=== PATIENT | female | born 1940 | race Hispanic/Latino ===

== ENCOUNTER 2017-03-10 06:13 | Emergency (ER) | payer MEDICARE, OTHER ==
[2017-03-10 06:21] VITALS: BP 167/81; PULSE 105; RESP 21; TEMP 98.5; O2SAT 96
[2017-03-10] MEDS ORDERED: Sodium Chloride 0.9% 1,000 ML IV STA (06:29)
--- NOTE | 2017-03-10 06:48 | ED PDOC ---
HPI: Female Pain Time Seen by Provider: 03/10/17 06:28 Chief Complaint (Nursing): Female Genitourinary Chief Complaint (Provider): Female Genitourinary History Per: Patient History/Exam Limitations: no limitations Onset/Duration Of Symptoms: Days (x5 days) Current Symptoms Are (Timing): Still Present Additional Complaint(s): 77 y/o female with a past medical history of kidney stones, asthma, bronchitis, hypertension and anxiety presents to the emergency department with a complaint of right flank pain, dysuria, sweats, chills, and abdominal pain (suprapubic region) x5 days. Describes pain is an 8/10 which worsens with urination. Reports she is currently on Zithromax for bronchitis. Denies fever, nausea, vomiting, and diarrhea. Past Medical History Reviewed: Historical Data, Nursing Documentation, Vital Signs Vital Signs: Last Vital Signs Temp 98.5 F 03/10/17 06:16 Pulse 105 H 03/10/17 06:16 Resp 21 03/10/17 06:16 BP 167/81 H 03/10/17 06:16 Pulse Ox 96 03/10/17 06:16 - Medical History PMH: Bronchitis, HTN, Kidney Stones, Chronic Kidney Disease - Surgical History Surgical History: No Surg Hx - Family History Family History: States: Unknown Family Hx - Social History Current smoker - smoking cessation education provided: No Alcohol: None Drugs: Denies - Home Medications Home Medications: Ambulatory Orders Medication Instructions Recorded Olmesartan Medoxomil [Benicar] 5 mg PO DAILY 08/05/15 Albuterol HFA [Ventolin HFA 90 1 puff IH Q4 PRN #1 puff 08/06/15 mcg/actuation (8 g)] Benzonatate [Tessalon Perles] 100 mg PO TID PRN #0 sgl 08/06/15 Losartan [Cozaar] 25 mg PO DAILY #0 tab 08/06/15 Azithromycin [Zithromax] 250 mg PO DAILY 03/10/17 Fluticasone/Vilanterol [Breo 1 puff PO DAILY 03/10/17 Ellipta 100-25 Mcg INH] Nitrofurantoin Macrocrystals 100 mg PO BID #14 cap 03/10/17 [Macrobid] Phenazopyridine [Pyridium] 200 mg PO TID PRN #6 tab 03/10/17 - Allergies Allergies/Adverse Reactions: Allergies Allergy/AdvReac Type Severity Reaction Status Date / Time codeine Allergy NAUSEA Verified 03/10/17 06:23 naproxen [From Naprosyn] Allergy RASH Verified 03/10/17 06:23 Review of Systems ROS Statement: Except As Marked, All Systems Reviewed And Found Negative Constitutional: Positive for: Chills, Sweats. Negative for: Fever Gastrointestinal: Positive for: Abdominal Pain. Negative for: Nausea, Vomiting , Diarrhea Genitourinary Female: Positive for: Dysuria Musculoskeletal: Positive for: Other (Flank pain) Physical Exam - Reviewed Nursing Documentation Reviewed: Yes Vital Signs Reviewed: Yes - Physical Exam Appears: Positive for: Non-toxic, No Acute Distress Head Exam: Positive for: ATRAUMATIC, NORMOCEPHALIC Skin: Positive for: Normal Color, Warm, Dry Neck: Positive for: Normal, Supple Cardiovascular/Chest: Positive for: Regular Rate, Rhythm. Negative for: Murmur Respiratory: Positive for: Normal Breath Sounds. Negative for: Accessory Muscle Use, Respiratory Distress Gastrointestinal/Abdominal: Positive for: Soft, Tenderness (Suprapubic tenderness) Back: Positive for: R CVA Tenderness. Negative for: Normal Inspection - Laboratory Results Result Diagrams: 03/10/17 07:10 03/10/17 07:10 - ECG O2 Sat by Pulse Oximetry: 96 (RA) Pulse Ox Interpretation: Normal Medical Decision Making Medical Decision Making: Time: 06:28 Initial impression: 77 y/o female with flank pain and urinary symptoms in setting of previous kidney stones Initial plan: --COMP Metabolic Panel --Lact Acid, Plasma Stat --ED Urine Dipstick (POC) --CBC w/ differential --Toradol 10 mg IV Stat --Sodium Chloride 1,000 ml IV 1,000 mls/hr --Rocephin 1gm --Blood Culture Stat --Culture Urine --IV Insertion --Revaluation Time: 07:00 --Transfer of care to Dr. Vanessa Padilla Attestation: Documented by Jo Ann Granados, acting as a scribe for Sami Jackman MD. Provider Scribe Attestation: All medical record entries made by the Scribe were at my direction and personally dictated by me. I have reviewed the chart and agree that the record accurately reflects my personal performance of the history, physical exam, medical decision making, and the department course for this patient. I have also personally directed, reviewed, and agree with the discharge instructions and disposition. Disposition - Clinical Impression Clinical Impression: UTI (urinary tract infection) - Disposition Referrals: Lyndon Porter MD [Family Provider] - Disposition: Transfer of Care (to Dr. Mendez) Disposition Time: 07:00 Condition: STABLE Prescriptions: Nitrofurantoin Macrocrystals [Macrobid] 100 mg PO BID #14 cap Phenazopyridine [Pyridium] 200 mg PO TID PRN #6 tab PRN Reason: Bladder Spasm Instructions: Urinary Tract Infection in Women (ED) Print Language: ITALIAN Patient Signed Over To: Miesha Mendez
[2017-03-10 07:13] LABS: BASO # 0.1 K/uL (0.0-0.2); BASO % 0.5 % (0.0-2.0); EOS # 0.1 K/uL (0.0-0.7); EOS % 1.1 % (0.0-4.0); HEMATOCRIT 38.1 % (34.0-47.0); LYMPH # 1.9 K/uL (1.0-4.3); LYMPH % 16.4 % (20.0-40.0); MEAN CELL VOLUME 89.8 fl (81.0-99.0); MEAN CORPUSCULAR HEMOGLOBIN 29.5 pg (27.0-31.0); MEAN CORPUSCULAR HGB CONC 32.8 g/dL (33.0-37.0); MEAN PLATELET VOLUME 8.3 fl (7.2-11.7); MONO # 0.8 K/uL (0.0-0.8); MONO % 6.9 % (0.0-10.0); NEUT # 8.8 K/uL (1.8-7.0); NEUT % 75.1 % (50.0-75.0); NRBC % 0.1 % (0.0-0.0); RED CELL DISTRIBUTION WIDTH 14.2 % (11.5-14.5); WHITE BLOOD COUNT 11.7 K/uL (4.8-10.8)
[2017-03-10 07:25] LABS: ALB/GLOB RATIO 1.4 (1.0-2.1); ALKALINE PHOSPHATASE 81 U/L (38-126); ALT/SGPT 31 U/L (9-52); AST/SGOT 19 U/L (14-36); BILIRUBIN,TOTAL 0.5 mg/dl (0.2-1.3); BLOOD UREA NITROGEN 21 mg/dl (7-17); CALCIUM 9.4 mg/dL (8.4-10.2); CARBON DIOXIDE 23 mmol/L (22-30); CHLORIDE 106 mmol/L (98-107); GFR AFRICAN-AMERICAN > 60; GLUCOSE,RANDOM 112 mg/dL (65-105); POTASSIUM 4.3 MMOL/L (3.6-5.0); SODIUM 139 mmol/l (132-148); TOTAL PROTEIN 7.2 G/DL (6.3-8.2)
[2017-03-10] MEDS ORDERED: cefTRIAXone (Rocephin) 1 gm Inj ONE ×2 (07:25→20:02)
[2017-03-10 08:48] LABS: RBC URINE 2 /hpf (0-3); URINE BACTERIA MOD (<OCC); URINE BILIRUBIN NEGATIVE (NEGATIVE); URINE BLOOD NEGATIVE (NEGATIVE); URINE COLOR AMBER (YELLOW); URINE GLUCOSE (UA) NEG (Normal); URINE KETONE NEGATIVE (NEGATIVE); URINE LEUKOCYTE ESTERASE MOD Leu/uL (Negative); URINE PROTEIN NEGATIVE (NEGATIVE); WBC CLUMPS MOD /hpf; WBC URINE 38 /hpf (0-5)
--- NOTE | 2017-03-10 09:50 | CT ---
PROCEDURE: CT abdomen pelvis the 03/10/2017. HISTORY: L flank pain COMPARISON: Comparison made prior CT scan abdomen pelvis 11/25/2014. TECHNIQUE: Contiguous axial images of the abdomen and pelvis without oral or intravenous contrast material the [place]. Coronal and Sagittal reformats generated. Radiation dose: Total exam DLP = 1037.72 mGy-cm. This CT exam was performed using one or more of the following dose reduction techniques: Automated exposure control, adjustment of the mA and/or kV according to patient size, and/or use of iterative reconstruction technique. FINDINGS: LOWER THORAX: No acute infiltrates or effusions. Semi lunar shaped nodular density left posterolateral lung base measuring approximately 10 mm. This could represent some post inflammatory sequela. Followup nonemergent CT scan of the chest without the further evaluation. There is also small calcified granuloma the immediately to the aforementioned semi lunar shaped nodule (see axial image number 3 and 7 respectively) mild curvilinear subsegmental atelectasis/ scarring also present within the medial posterior sulcus. . Heart size is mildly enlarged. . LIVER: Liver exhibits relatively normal size measuring 17 cm in CC dimension. No hepatic mass or collection. . GALLBLADDER AND BILE DUCTS: Gallbladder is physiologically distended. No evidence of intraluminal gallbladder calculi. . PANCREAS: Visualized portions of the pancreas are unremarkable. SPLEEN: Spleen exhibits normal size and attenuation pattern without mass collection or calcification. ADRENALS: No adrenal lesions. . KIDNEYS AND URETERS: Kidneys exhibit relatively symmetric size. No evidence of nephrolithiasis or hydronephrosis. Small approximately 16 mm cyst posterior aspect mid to upper pole right kidney. Note that the left kidney is incompletely rotated BLADDER: Urinary bladder is incompletely distended which may account for slight thick-walled appearance. The possibility of a cystitis less likely though not completely excluded. Clinical correlation recommended. No evidence of intraluminal urinary bladder calculi. REPRODUCTIVE: Uterus and adnexal structures grossly unremarkable. . APPENDIX: The appendix is not seen with certainty however no obvious inflammatory changes right lower quadrant of the abdomen. BOWEL: Evaluation of the bowel is limited due to the lack of oral contrast material. Stomach is incompletely distended which presumably accounts slight thick-walled appearance. Gastritis not excluded. Visualized loops of small bowel exhibit normal contour and caliber. No evidence acute mechanical small bowel obstruction. Stool and air seen throughout the colon. There does appear to be a few scattered colonic diverticula along the distal descending and sigmoid: . No radiographic evidence of acute diverticulitis PERITONEUM: Unremarkable. No fluid collection. No free air. Small fat containing umbilical hernia. LYMPH NODES: Unremarkable. No enlarged lymph nodes. VASCULATURE: Unremarkable. No aortic aneurysm. BONES: Multilevel degenerative spondylosis of the lower thoracic and lumbar spine. OTHER FINDINGS: None. IMPRESSION: No evidence of nephrolithiasis or hydronephrosis. Small cyst upper pole right kidney. There appears to be a few scattered colonic diverticula along the descending and sigmoid colon however no radiographic evidence diverticulitis. Small hiatal hernia. Scarring/chronic atelectasis left the small approximately 10 mm semi lunar shaped nodular density left lung base. Findings are felt to represent post inflammatory sequela. There is also small calcified calcified granuloma left lung base consistent with prior exposure to granulomatous disease process.
== END 2017-03-10 10:58 | disposition home or self-care (01) ==
LOC: H.ER 06:13
DX: N39.0 Urinary tract infection, site not specified (principal); Z87.442 Personal history of urinary calculi; N18.9 Chronic kidney disease, unspecified; I12.9 Hypertensive chronic kidney disease with stage 1 through stage 4 chronic kidney disease, or unspecified chronic kidney disease

== ENCOUNTER 2017-03-10 19:04 | Inpatient (IN) | payer MEDICARE, OTHER ==
[2017-03-10] MEDS ORDERED: Sodium Chloride 0.9% 1,000 ML IV STA (19:29)
--- NOTE | 2017-03-10 19:57 | ED PDOC ---
HPI:Nausea, Vomiting, Diarrhea Time Seen by Provider: 03/10/17 19:21 Chief Complaint (Nursing): GI Problem Chief Complaint (Provider): Nausea/Vomiting History Per: Patient History/Exam Limitations: no limitations Onset/Duration Of Symptoms: Days (2 days) Current Symptoms Are (Timing): Still Present Have you had recent travel within the past 21 days to any of the following countries: [place], [place], [place] or [place]?: No Severity: Moderate Associated Symptoms: Fever, Chills, Nausea, Vomiting (bilious), Other (mild, right-sided flank pain and a non-productive cough) Additional Complaint(s): Nona Irwin is a 77 year old [place] female, with no pertinent past medical history, who presents to the emergency department for the evaluation of bilious vomiting, that the patient has been experiencing for the past 2 days. Patient was seen in the emergency room this morning by Sami Jackman MD and signed out to the incoming shift, in which she had a full work up that was consistent with a urinary tract infection, and was diagnosed home on antibiotics. Patient reports that after being discharged from the emergency room , she began to feel increasingly worse, inclusive of nausea and multiple episodes of vomiting; however, her right-sided flank pain has somewhat improved. Associated fever, chills, and a dry cough are currently present. PMD: Lyndon Porter Past Medical History Reviewed: Historical Data, Nursing Documentation, Vital Signs Vital Signs: Last Vital Signs Temp 99.4 F 03/10/17 19:07 Pulse 130 H 03/10/17 19:07 Resp 16 03/10/17 19:07 BP 157/65 H 03/10/17 19:07 Pulse Ox 100 03/10/17 19:07 - Medical History PMH: Anxiety, Bronchitis, HTN, Kidney Stones, Chronic Kidney Disease Other PMH: Hemorrhoids, Urinary Tract Infection - Surgical History Surgical History: No Surg Hx - Family History Family History: States: No Known Family Hx - Social History Current smoker - smoking cessation education provided: No Ex-Smoker (has not smoked in the last 12 months): No Alcohol: None Drugs: Denies - Home Medications Home Medications: Ambulatory Orders Medication Instructions Recorded Olmesartan Medoxomil [Benicar] 5 mg PO DAILY 08/05/15 Albuterol HFA [Ventolin HFA 90 1 puff IH Q4 PRN #1 puff 08/06/15 mcg/actuation (8 g)] Benzonatate [Tessalon Perles] 100 mg PO TID PRN #0 sgl 08/06/15 Losartan [Cozaar] 25 mg PO DAILY #0 tab 08/06/15 Azithromycin [Zithromax] 250 mg PO DAILY 03/10/17 Fluticasone/Vilanterol [Breo 1 puff PO DAILY 03/10/17 Ellipta 100-25 Mcg INH] Nitrofurantoin Macrocrystals 100 mg PO BID #14 cap 03/10/17 [Macrobid] Phenazopyridine [Pyridium] 200 mg PO TID PRN #6 tab 03/10/17 - Allergies Allergies/Adverse Reactions: Allergies Allergy/AdvReac Type Severity Reaction Status Date / Time codeine Allergy NAUSEA Verified 03/10/17 06:23 naproxen [From Naprosyn] Allergy RASH Verified 03/10/17 06:23 Review of Systems ROS Statement: Except As Marked, All Systems Reviewed And Found Negative Constitutional: Positive for: Fever, Chills Respiratory: Positive for: Cough Gastrointestinal: Positive for: Nausea, Vomiting (bilious), Abdominal Pain ( right flank) Physical Exam - Reviewed Nursing Documentation Reviewed: Yes Vital Signs Reviewed: Yes - Physical Exam Appears: Positive for: Non-toxic, Uncomfortable Head Exam: Positive for: ATRAUMATIC, NORMOCEPHALIC Skin: Positive for: Normal Color, Warm, Dry Cardiovascular/Chest: Positive for: Tachycardia. Negative for: Regular Rate, Rhythm (regular rhythm), Murmur Respiratory: Positive for: Normal Breath Sounds. Negative for: Respiratory Distress Gastrointestinal/Abdominal: Positive for: Normal Exam, Soft. Negative for: Tenderness, Guarding, Rebound Back: Positive for: Normal Inspection, R CVA Tenderness (mild). Negative for: L CVA Tenderness Neurologic/Psych: Positive for: Alert, Oriented - Laboratory Results Result Diagrams: 03/11/17 06:30 03/11/17 06:30 - ECG O2 Sat by Pulse Oximetry: 100 (RA) Pulse Ox Interpretation: Normal - Radiology X-Ray: Interpreted by Me, Viewed By Me, Read By Radiologist X-Ray Interpretation: No Acute Disease Medical Decision Making Medical Decision Makin:21 Initial Impression: 77 year old [place] female presents to the emergency department with nausea, vomiting, PO intolerance, and a setting of a diagnosed urinary tract infection. Initial Plan: * Chest X-Ray * Electrocardiogram * Complete Blood Count * Comprehensive Metabolic Panel * Lactic Acid, Plasma * Urine Dip * Urinalysis * Sodium Chloride 0.9% 1,000 ml IV at 100 mls/hr * Pepcid 20 mg IV * Rocephin 1 gm IV * Toradol 10 mg IV * Zofran 8 mg IV * Blood Culture * Urine Culture * Reevaluation 19:37 Patient admit to the emergency room, case referred to Javed Baig MD, covering for Lyndon Porter MD. 21:50 Labs reviewed, significant for elevated white blood cell count, which is increased from white blood cell count this morning. Urinalysis is indicative of a urinary tract infection. Lactic acid is normal. Chest x-ray shows no acute disease. Scribe Attestation: Documented by Ria Ellison, acting as a scribe for Sami Jackman MD. Provider Scribe Attestation: All medical record entries made by the Scribe were at my direction and personally dictated by me. I have reviewed the chart and agree that the record accurately reflects my personal performance of the history, physical exam, medical decision making, and the department course for this patient. I have also personally directed, reviewed, and agree with the discharge instructions and disposition. Disposition - Clinical Impression Clinical Impression: Pyelonephritis - Patient ED Disposition Is Patient to be Admitted: Yes Discussed With DrCarmencita: Javed Baig ( for Dr Porter) - Disposition Disposition Time: 19:37 Condition: FAIR
[2017-03-10] MEDS ORDERED: Albuterol-Ipratrop 3 mg / 0.5 (3 ml) UD INH STA (20:21)
[2017-03-10] MEDS ORDERED: Albuterol-Ipratrop 3 mg / 0.5 (3 ml) UD ONE (20:34)
[2017-03-10 20:36] LABS: BASO # 0.1 K/uL (0.0-0.2); BASO % 0.5 % (0.0-2.0); EOS # 0.1 K/uL (0.0-0.7); EOS % 0.3 % (0.0-4.0); HEMATOCRIT 36.7 % (34.0-47.0); LYMPH # 0.6 K/uL (1.0-4.3); LYMPH % 3.6 % (20.0-40.0); MEAN CELL VOLUME 89.1 fl (81.0-99.0); MEAN CORPUSCULAR HEMOGLOBIN 30.1 pg (27.0-31.0); MEAN CORPUSCULAR HGB CONC 33.8 g/dL (33.0-37.0); MEAN PLATELET VOLUME 8.8 fl (7.2-11.7); MONO # 0.5 K/uL (0.0-0.8); MONO % 2.8 % (0.0-10.0); NEUT # 15.2 K/uL (1.8-7.0); NEUT % 92.8 % (50.0-75.0); NRBC % 0.1 % (0.0-0.0); PLATELET COUNT 222 K/uL (130-400); WHITE BLOOD COUNT 16.3 K/uL (4.8-10.8)
[2017-03-10] MEDS ORDERED: Ciprofloxacin 400mg/200ml D5W 400 MG/200 ML BAG IV STA (20:39)
[2017-03-10 20:43] LABS: ALB/GLOB RATIO 1.4 (1.0-2.1); ALKALINE PHOSPHATASE 77 U/L (38-126); ALT/SGPT 28 U/L (9-52); AST/SGOT 25 U/L (14-36); BLOOD UREA NITROGEN 18 mg/dl (7-17); CALCIUM 9.2 mg/dL (8.4-10.2); CARBON DIOXIDE 23 mmol/L (22-30); CHLORIDE 103 mmol/L (98-107); GFR AFRICAN-AMERICAN > 60; GLUCOSE,RANDOM 113 mg/dL (65-105); POTASSIUM 4.3 MMOL/L (3.6-5.0); SODIUM 137 mmol/l (132-148); TOTAL PROTEIN 7.1 G/DL (6.3-8.2)
[2017-03-10 21:23] LABS: NEUTROPHIL 90 % (42-75); REACTIVE LYMPHOCYTES 1 % (0-0); TOTAL CELLS COUNTED 100
[2017-03-10 21:34] LABS: RBC URINE 1 /hpf (0-3); URINE BILIRUBIN NEGATIVE (NEGATIVE); URINE BLOOD NEGATIVE (NEGATIVE); URINE COLOR AMBER (YELLOW); URINE GLUCOSE (UA) NEG (Normal); URINE KETONE NEGATIVE (NEGATIVE); URINE LEUKOCYTE ESTERASE TRACE Leu/uL (Negative); URINE PROTEIN NEGATIVE (NEGATIVE); WBC URINE 13 /hpf (0-5)
[2017-03-10] MEDS ORDERED: Albuterol-Ipratrop 3 mg / 0.5 (3 ml) UD INH PRN (21:34)
--- NOTE | 2017-03-10 21:40 | CP.PCM.HP ---
History of Present Illness - History of Present Illness History of Present Illness: 77 y/o F with PMH including HTN, Hyperlipidemia, Obesity, Anxiety, Kidney stones and recently diagnosed acute bronchitis presented to ED earlier today with 3-4 day history of increasing dysuria, suprapubic pain, right sided flank pain, subjective fever and chills. She was evaluated and discharged home with diagnosis of acute cystitis and course of macrobid. Patient reports that after being discharged from ED she began experiencing increasing nausea and vomiting and has been unable to tolerate her antibiotics. She had 6 episodes of non- bloody emesis today, with the last episode occurring 1 hour prior to assessment. Patient is also currently being treated for acute bronchitis. She had been experiencing a non-bloody cough productive of whitish yellow mucus. She is currently on day 01/16 of a zpack which was prescribed by her PCP. She denies chest pain, SOB or exertional dyspnea. PCP: Dr Shankar Present on Admission - Present on Admission Any Indicators Present on Admission: No History of DVT/PE: No History of Uncontrolled Diabetes: No Urinary Catheter: No Review of Systems - Constitutional Constitutional: Chills, Fever. absent: Headache - EENT Nose/Mouth/Throat: Dry Mouth - Cardiovascular Cardiovascular: absent: Chest Pain, Diaphoresis, Dyspnea, Palpitations - Respiratory Respiratory: Cough. absent: Hemoptysis - Gastrointestinal Gastrointestinal: Abdominal Pain (suprapubic pain), Nausea, Vomiting. absent: Diarrhea - Genitourinary Genitourinary: Dysuria, Flank Pain, Urinary Frequency, Urinary Urgency. absent : Hematuria - Psychiatric Psychiatric: Anxiety Past Patient History - Past Medical History & Family History Past Medical History?: Yes - Past Social History Smoking Status: Never Smoked Alcohol: None Drugs: Denies Home Situation {Lives}: Alone - CARDIAC Hx Hypertension: Yes - PULMONARY Hx Bronchitis: Yes - NEUROLOGICAL Hx Neurological Disorder: No - HEENT Hx HEENT Problems: No - RENAL Hx Chronic Kidney Disease: Yes Hx Kidney Stones: Yes - ENDOCRINE/METABOLIC Hx Endocrine Disorders: No - HEMATOLOGICAL/ONCOLOGICAL Hx Blood Disorders: No - INTEGUMENTARY Hx Dermatological Problems: No - MUSCULOSKELETAL/RHEUMATOLOGICAL Hx Musculoskeletal Disorders: No - GASTROINTESTINAL Hx Gastrointestinal Disorders: Yes Hx Hemorrhoids: Yes Other/Comment: Hemorrhoids - GENITOURINARY/GYNECOLOGICAL Hx Genitourinary Disorders: Yes (Kidney stones 2014) - PSYCHIATRIC Hx Anxiety: Yes - SURGICAL HISTORY Hx Surgeries: No - ANESTHESIA Hx Anesthesia: No Meds Allergies/Adverse Reactions: Allergies Allergy/AdvReac Type Severity Reaction Status Date / Time codeine Allergy NAUSEA Verified 03/10/17 06:23 naproxen [From Naprosyn] Allergy RASH Verified 03/10/17 06:23 Physical Exam - Constitutional Appears: Non-toxic, No Acute Distress - Head Exam Head Exam: ATRAUMATIC, NORMAL INSPECTION, NORMOCEPHALIC - Eye Exam Eye Exam: EOMI, Normal appearance, PERRL. absent: Scleral icterus - Neck Exam Neck exam: Positive for: Full Rom. Negative for: Lymphadenopathy - Respiratory Exam Additional comments: B/L air entry present. No wheezing, rales or rhonchii appreciated. No retractions or signs of respiratory distress. - Cardiovascular Exam Cardiovascular Exam: Tachycardia, REGULAR RHYTHM, +S1, +S2, Systolic Murmur ( Grade II) - GI/Abdominal Exam GI & Abdominal Exam: Normal Bowel Sounds, Soft. absent: Distended, Rebound, Tenderness (No suprapubic tenderness) Additional comments: Negative Blackwell sign. - Extremities Exam Extremities exam: Positive for: pedal edema (trace b/l). Negative for: calf tenderness Additional comments: Cap refill <3s - Back Exam Back exam: CVA tenderness (R) - Neurological Exam Neurological exam: Alert, CN II-XII Intact, Oriented x3 - Psychiatric Exam Psychiatric exam: Anxious - Skin Skin Exam: Dry, Normal Color, Warm Results - Vital Signs Recent Vital Signs: Last Vital Signs Temp 99.4 F 03/10/17 19:07 Pulse 130 H 03/10/17 19:07 Resp 16 03/10/17 19:07 BP 157/65 H 03/10/17 19:07 Pulse Ox 100 03/10/17 20:08 - Labs Result Diagrams: 03/10/17 20:26 03/10/17 20:26 Labs: Laboratory Results - last 24 hr 03/10/17 03/10/17 03/10/17 20:25 20:26 20:26 WBC 16.3 H RBC 4.12 Hgb 12.4 Hct 36.7 MCV 89.1 MCH 30.1 MCHC 33.8 RDW 14.0 Plt Count 222 MPV 8.8 Neut % (Auto) 92.8 H Lymph % (Auto) 3.6 L [place] % (Auto) 2.8 Eos % (Auto) 0.3 Baso % (Auto) 0.5 Neut # 15.2 H Lymph # 0.6 L [place] # 0.5 Eos # 0.1 Baso # 0.1 Neutrophils % (Manual) 90 H Band Neutrophils % 4 H Lymphocytes % (Manual) 2 L Reactive Lymphs % 1 H Monocytes % (Manual) 3 Platelet Estimate Normal Anisocytosis (manual) Slight Sodium 137 Potassium 4.3 Chloride 103 Carbon Dioxide 23 Anion Gap 15 BUN 18 H Creatinine 0.8 Est GFR ( Amer) > 60 Est GFR (Non-Af Amer) > 60 Random Glucose 113 H Lactic Acid 1.6 Calcium 9.2 Total Bilirubin 1.0 AST 25 ALT 28 Alkaline Phosphatase 77 Total Protein 7.1 Albumin 4.1 Globulin 3.0 Albumin/Globulin Ratio 1.4 Assessment & Plan - Assessment and Plan (Free Text) Assessment: 77 y/o F with PMH including HTN, Hyperlipidemia, Obesity, Anxiety, Kidney stones and recently diagnosed acute bronchitis presented to ED with 3-4 day history of increasing dysuria, suprapubic pain, right sided flank pain, subjective fever and chills. She was unable to tolerate antibiotics due to increasing nausea and vomiting and was admitted with acute pyelonephritis based on UA and clinical examination. Plan: Flank pain, right sided -Likely secondary to acute pyelonephritis -UA reveals positive Nitrates, Moderate/Trace Leukocyte esterace and bacteria -Urine culture obtained and pending -Patient has history of kidney stones, however abdominal CT did not detect any evidence of nephrolithiasis or hydronephrosis -Urinary bladder wall appears slightly thickened on CT, which may be consistent with cystitis -No evidence of cholelithiasis. LFTs and total bili are within normal limits -EKG sinus tachycardia with no ischemic changes -WBC: 16.3. Patient currently afebrile -Received Ceftriaxone 1gm IV x2 doses from ED -Will continue Ceftriaxone 1gm IV daily -IV fluids for dehydration -Toradol prn for pain Acute bronchitis -Patient is currently being treated for acute bronchitis by PCP -On day 4/5 of Zpack -CXR does not reveal any clear effusions or infiltrates. Pending official read -Currently denies SOB but has been using duoneb treatments at home PRN Hypertension -Poorly controlled. -BP possibly acutely increased secondary to pain. -Will follow BP and consider dose adjustments as necessary Hyperlipidemia -Patient reports prior history of hyperlipidemia which is not currently medically managed -Will obtain lipid panel DVT Prophylaxis -Lovenox 40mg SC daily -SCDs
[2017-03-10] MEDS: Sodium Chloride 0.9% 1,000 ML IV SCH (22:57)
[2017-03-11] MEDS: Sodium Chloride 0.9% 1,000 ML IV SCH ×2 (00:49→04:39)
[2017-03-11 07:24] LABS: BASO % 0.2 % (0.0-2.0); EOS # 0.1 K/uL (0.0-0.7); EOS % 0.2 % (0.0-4.0); HEMATOCRIT 31.6 % (34.0-47.0); LYMPH # 0.9 K/uL (1.0-4.3); MEAN CELL VOLUME 89.4 fl (81.0-99.0); MEAN CORPUSCULAR HEMOGLOBIN 29.5 pg (27.0-31.0); MEAN CORPUSCULAR HGB CONC 33.1 g/dL (33.0-37.0); MEAN PLATELET VOLUME 8.3 fl (7.2-11.7); MONO % 4.2 % (0.0-10.0); NEUT # 20.6 K/uL (1.8-7.0); NEUT % 91.4 % (50.0-75.0); NRBC % 0.1 % (0.0-0.0); RED CELL DISTRIBUTION WIDTH 14.2 % (11.5-14.5); WHITE BLOOD COUNT 22.6 K/uL (4.8-10.8)
[2017-03-11 07:30] LABS: BLOOD UREA NITROGEN 17 mg/dl (7-17); CALCIUM 8.4 mg/dL (8.4-10.2); CARBON DIOXIDE 25 mmol/L (22-30); CHLORIDE 106 mmol/L (98-107); GFR AFRICAN-AMERICAN > 60; GLUCOSE,RANDOM 116 mg/dL (65-105); POTASSIUM 4.2 MMOL/L (3.6-5.0); SODIUM 138 mmol/l (132-148)
[2017-03-11] MEDS: Enoxaparin 40 mg Syringe SC SCH (08:54)
[2017-03-11] MEDS ORDERED: Sodium Chloride 0.9% 1,000 ML IV SCH (10:05)
--- NOTE | 2017-03-11 10:58 | CARD ---
APPROVED REPORT EKG Measurement Heart [id number] <Conclusion> Sinus tachycardia Left axis deviation Abnormal ECG
--- NOTE | 2017-03-11 10:59 | RAD ---
HISTORY: cough COMPARISON: 07/24/2016 FINDINGS: LUNGS: Increased pulmonary vascular congestion. Hazy opacity in the lung bases. PLEURA: No significant pleural effusion identified, no pneumothorax apparent. CARDIOVASCULAR: Enlarged cardiomediastinal silhouette, essentially unchanged. OSSEOUS STRUCTURES: The osseous structures demonstrate degenerative changes. VISUALIZED UPPER ABDOMEN: Upper abdomen is suboptimally evaluated. OTHER FINDINGS: None. IMPRESSION: Increased pulmonary vascular congestion and hazy opacity in the lung bases.
--- NOTE | 2017-03-11 11:04 | CP.PCM.PN ---
Subjective - Date & Time of Evaluation Date of Evaluation: 03/11/17 Time of Evaluation: 08:00 - Subjective Subjective: 77 y/o F admitted with Right flank pain, associated with dysuria, nausea, vomiting, fevers being f/u for fever and clinical condition. Patient was seen and examined at bedside this morning. Patient is still complaining of right flank pain, intermittent, sharp quality, reproduced by changes in position. Patient is complaining of wet cough associated with green non bloody sputum production. Denies chills, nausea, vomiting, chest pain, SOB, abdominal pain. Objective - Vital Signs/Intake and Output Vital Signs (last 24 hours): Temp Pulse Resp BP Pulse Ox 98.6 F 67 20 124/71 97 03/11/17 08:12 03/11/17 08:53 03/11/17 08:12 03/11/17 08:53 03/11/17 08:12 - Medications Medications: Current Medications Acetaminophen (Tylenol 325mg Tab) 650 mg PO Q6 PRN PRN Reason: Fever >100.4 F Last Admin: 03/11/17 07:44 Dose: 650 mg Albuterol/Ipratropium (Duoneb 3 Mg/0.5 Mg (3 Ml) Ud) 3 ml INH Q8 [facility] TO [facility] Benzonatate (Tessalon Perles) 100 mg PO TID PRN PRN Reason: Cough Enoxaparin Sodium (Lovenox) 40 mg SC DAILY [facility]U PRN Reason: Protocol Last Admin: 03/11/17 08:54 Dose: 40 mg Ceftriaxone Sodium 1 gm/ (Sodium Chloride) 100 mls @ 100 mls/hr IVPB DAILY [facility] Last Admin: 03/11/17 09:27 Dose: 100 mls/hr Sodium Chloride (Sodium Chloride 0.9%) 1,000 mls @ 125 mls/hr IV .Q8H [facility] Stop: 03/11/17 21:25 Ketorolac Tromethamine (Toradol) 15 mg IVP Q6 PRN PRN Reason: Pain, moderate (4-7) Last Admin: 03/11/17 00:46 Dose: 15 mg Losartan Potassium (Cozaar) 12.5 mg PO DAILY [facility] Last Admin: 03/11/17 08:53 Dose: 12.5 mg Ondansetron HCl (Zofran Inj) 4 mg IVP Q6 PRN PRN Reason: Nausea/Vomiting - Labs Labs: 03/11/17 06:30 03/11/17 06:30 - Constitutional Appears: Non-toxic, No Acute Distress - ENT Exam ENT Exam: Mucous Membranes Moist - Respiratory Exam Respiratory Exam: Rales (fine, diffuse left lower lung crackles to auscultation. Diffuse, scant expiratory rhonchi), NORMAL BREATHING PATTERN - Cardiovascular Exam Cardiovascular Exam: REGULAR RHYTHM, +S1, +S2 - GI/Abdominal Exam GI & Abdominal Exam: Soft, Normal Bowel Sounds. absent: Guarding, Rigid, Tenderness - Extremities Exam Extremities Exam: Normal Inspection. absent: Calf Tenderness - Neurological Exam Neurological Exam: Alert, Awake, Oriented x3 - Skin Skin Exam: Dry, Intact, Normal Color Assessment and Plan - Assessment and Plan (Free Text) Assessment: 77 y/o F with PMHx of HTN, Hyperlipidemia, Obesity, Anxiety, Kidney stones with recent acute bronchitis diagnosis and Tx, admitted with Right flank pain, associated with dysuria, nausea, vomiting, fevers. Plan: Acute pyelonephritis -Still symptomatic, flank pain, right sided' nausea, vomiting, spiking fever 101.2 F -WBC: still elevated, trending up 22.6 -Urine culture pending -c/w Ceftriaxone 1gm IV daily -Advance diet as tolerated -IV fluids for dehydration. Consider discontinuation if tolerating PO -c/w Toradol prn for pain -c/w with Zofran PRN for nausea -Patient has history of kidney stones, however abdominal CT did not detect any evidence of nephrolithiasis or hydronephrosis -Urinary bladder wall appears slightly thickened on CT, which may be consistent with cystitis Acute bronchitis Viral vs Bacterial -Patient is currently being treated for acute bronchitis by PCP. -Patient clinical condition no improved after Azythromycin PO -s/p Azythromycin x 5 days -c/w Duoneb Q8h BHANU -c/w Tessalon PO TID PRN -Pulmunology consult appreciated, Dr. Fernando. F/U recommendations -Consider antibiotic treatment: discuss Levofloxacin, Zosyn) that can coverage UTI and resp infection -CXR showed increased pulmonary vascular congestion and hazy opacity in the lung bases. Hypertension -c/w with home medication -Losartan 12.5 mg PO daily -F/U Pro-BNP and Echo results Hyperlipidemia -Patient reports prior history of hyperlipidemia which is not currently medically managed -Consider F/u as outpatient DVT Prophylaxis -Lovenox 40mg SC daily
--- NOTE | 2017-03-11 13:57 | CP.PCM.CON ---
Past Patient History - Past Medical History & Family History Past Medical History?: Yes - Past Social History Smoking Status: Never Smoked Alcohol: None Drugs: Denies Home Situation {Lives}: Alone - CARDIAC Hx Hypertension: Yes - PULMONARY Hx Bronchitis: Yes - NEUROLOGICAL Hx Neurological Disorder: No - HEENT Hx HEENT Problems: No - RENAL Hx Chronic Kidney Disease: Yes Hx Kidney Stones: Yes - ENDOCRINE/METABOLIC Hx Endocrine Disorders: No - HEMATOLOGICAL/ONCOLOGICAL Hx Blood Disorders: No - INTEGUMENTARY Hx Dermatological Problems: No - MUSCULOSKELETAL/RHEUMATOLOGICAL Hx Musculoskeletal Disorders: No - GASTROINTESTINAL Hx Gastrointestinal Disorders: Yes Hx Hemorrhoids: Yes Other/Comment: Hemorrhoids - GENITOURINARY/GYNECOLOGICAL Hx Genitourinary Disorders: Yes (Kidney stones 2014) - PSYCHIATRIC Hx Anxiety: Yes - SURGICAL HISTORY Hx Surgeries: No - ANESTHESIA Hx Anesthesia: No Meds Allergies/Adverse Reactions: Allergies Allergy/AdvReac Type Severity Reaction Status Date / Time codeine Allergy NAUSEA Verified 03/10/17 06:23 naproxen [From Naprosyn] Allergy RASH Verified 03/10/17 06:23 - Medications Medications: Current Medications Acetaminophen (Tylenol 325mg Tab) 650 mg PO Q6 PRN PRN Reason: Fever >100.4 F Last Admin: 03/11/17 07:44 Dose: 650 mg Albuterol/Ipratropium (Duoneb 3 Mg/0.5 Mg (3 Ml) Ud) 3 ml INH Q8 [facility] Benzonatate (Tessalon Perles) 100 mg PO TID PRN PRN Reason: Cough Enoxaparin Sodium (Lovenox) 40 mg SC DAILY [facility] PRN Reason: Protocol Last Admin: 03/11/17 08:54 Dose: 40 mg Ceftriaxone Sodium 1 gm/ (Sodium Chloride) 100 mls @ 100 mls/hr IVPB DAILY [facility] Last Admin: 03/11/17 09:27 Dose: 100 mls/hr Sodium Chloride (Sodium Chloride 0.9%) 1,000 mls @ 125 mls/hr IV .Q8H [facility] Stop: 03/11/17 21:25 Ketorolac Tromethamine (Toradol) 15 mg IVP Q6 PRN PRN Reason: Pain, moderate (4-7) Last Admin: 03/11/17 13:45 Dose: 15 mg Losartan Potassium (Cozaar) 12.5 mg PO DAILY [facility] Last Admin: 03/11/17 08:53 Dose: 12.5 mg Ondansetron HCl (Zofran Inj) 4 mg IVP Q6 PRN PRN Reason: Nausea/Vomiting Results - Vital Signs Recent Vital Signs: Last Vital Signs Temp 98.6 F 03/11/17 08:12 Pulse 67 03/11/17 08:53 Resp 20 03/11/17 08:12 BP 124/71 03/11/17 08:53 Pulse Ox 97 03/11/17 08:12 - Labs Result Diagrams: 03/11/17 06:30 03/11/17 06:30 Labs: Laboratory Results - last 24 hr 03/10/17 03/10/17 03/10/17 20:25 20:26 20:26 WBC 16.3 H RBC 4.12 Hgb 12.4 Hct 36.7 MCV 89.1 MCH 30.1 MCHC 33.8 RDW 14.0 Plt Count 222 MPV 8.8 Neut % (Auto) 92.8 H Lymph % (Auto) 3.6 L Archuleta % (Auto) 2.8 Eos % (Auto) 0.3 Baso % (Auto) 0.5 Neut # 15.2 H Lymph # 0.6 L Archuleta # 0.5 Eos # 0.1 Baso # 0.1 Total Counted Neutrophils % (Manual) 90 H Band Neutrophils % 4 H Lymphocytes % (Manual) 2 L Reactive Lymphs % 1 H Monocytes % (Manual) 3 Eosinophils % (Manual) Basophils % (Manual) Metamyelocytes % Myelocytes % Promyelocytes % Blast Cells % Plasma Cell % (Manual) Nucleated RBC % Hypersegmented Polys Smudge Cells Toxic Granulation Dohle Bodies Matteo Rods Platelet Estimate Normal Plt Clumps, EDTA Large Platelets Giant Platelets RBC Morphology Polychromasia Hypochromasia (manual) Poikilocytosis (manual Basophilic Stippling Anisocytosis (manual) Slight Microcytosis (manual) Macrocytosis (manual) Spherocytes Sickle Cells Target Cells Tear Drop Cells Ovalocytes Stomatocytes Helmet Cells Alexis-Gurnee Bodies Celeste Cells Acanthocytes (Spur) Rouleaux Schistocytes Sodium 137 Potassium 4.3 Chloride 103 Carbon Dioxide 23 Anion Gap 15 BUN 18 H Creatinine 0.8 Est GFR ( Amer) > 60 Est GFR (Non-Af Amer) > 60 Random Glucose 113 H Lactic Acid 1.6 Calcium 9.2 Total Bilirubin 1.0 AST 25 ALT 28 Alkaline Phosphatase 77 Total Protein 7.1 Albumin 4.1 Globulin 3.0 Albumin/Globulin Ratio 1.4 Urine Color Urine Clarity Urine pH Ur Specific Radford Urine Protein Urine Glucose (UA) Urine Ketones Urine Blood Urine Nitrate Urine Bilirubin Urine Urobilinogen Ur Leukocyte Esterase Urine RBC (Auto) Urine Microscopic WBC Ur Squamous Epith Cells Hyaline Casts 03/10/17 03/11/17 03/11/17 20:26 06:30 06:30 WBC 22.6 H RBC 3.54 L Hgb 10.4 L D Hct 31.6 L MCV 89.4 MCH 29.5 MCHC 33.1 RDW 14.2 Plt Count 216 MPV 8.3 Neut % (Auto) 91.4 H Lymph % (Auto) 4.0 L Archuleta % (Auto) 4.2 Eos % (Auto) 0.2 Baso % (Auto) 0.2 Neut # 20.6 H Lymph # 0.9 L Archuleta # 1.0 H Eos # 0.1 Baso # 0.0 Total Counted Cancelled Neutrophils % (Manual) Cancelled Band Neutrophils % Cancelled Lymphocytes % (Manual) Cancelled Reactive Lymphs % Cancelled Monocytes % (Manual) Cancelled Eosinophils % (Manual) Cancelled Basophils % (Manual) Cancelled Metamyelocytes % Cancelled Myelocytes % Cancelled Promyelocytes % Cancelled Blast Cells % Cancelled Plasma Cell % (Manual) Cancelled Nucleated RBC % Cancelled Hypersegmented Polys Cancelled Smudge Cells Cancelled Toxic Granulation Cancelled Dohle Bodies Cancelled Matteo Rods Cancelled Platelet Estimate Cancelled Plt Clumps, EDTA Cancelled Large Platelets Cancelled Giant Platelets Cancelled RBC Morphology Cancelled Polychromasia Cancelled Hypochromasia (manual) Cancelled Poikilocytosis (manual Cancelled Basophilic Stippling Cancelled Anisocytosis (manual) Cancelled Microcytosis (manual) Cancelled Macrocytosis (manual) Cancelled Spherocytes Cancelled Sickle Cells Cancelled Target Cells Cancelled Tear Drop Cells Cancelled Ovalocytes Cancelled Stomatocytes Cancelled Helmet Cells Cancelled Alexis-Gurnee Bodies Cancelled Celeste Cells Cancelled Acanthocytes (Spur) Cancelled Rouleaux Cancelled Schistocytes Cancelled Sodium 138 Potassium 4.2 Chloride 106 Carbon Dioxide 25 Anion Gap 11 BUN 17 Creatinine 0.9 Est GFR ( Amer) > 60 Est GFR (Non-Af Amer) > 60 Random Glucose 116 H Lactic Acid Calcium 8.4 Total Bilirubin AST ALT Alkaline Phosphatase Total Protein Albumin Globulin Albumin/Globulin Ratio Urine Color Laura Urine Clarity Clear Urine pH 6.0 Ur Specific Radford 1.012 Urine Protein Negative Urine Glucose (UA) Neg Urine Ketones Negative Urine Blood Negative Urine Nitrate Positive H Urine Bilirubin Negative Urine Urobilinogen 4.0 H Ur Leukocyte Esterase Trace Urine RBC (Auto) 1 Urine Microscopic WBC 13 H Ur Squamous Epith Cells < 1 Hyaline Casts 3-5 H Assessment & Plan (1) Acute bronchitis Status: Acute Priority: High (2) Renal colic on left side Status: Acute Priority: High (3) UTI (urinary tract infection) Status: Acute Priority: High - Date & Time Date: 03/11/17 Time: 13:57
[2017-03-11] MEDS ORDERED: Albuterol 0.083% Inhal Sol (2.5 mg/3 mL) UD INH PRN (13:58)
[2017-03-11] MEDS: Albuterol-Ipratrop 3 mg / 0.5 (3 ml) UD INH SCH ×2 (15:47→20:10)
[2017-03-11] MEDS ORDERED: Albuterol-Ipratrop 3 mg / 0.5 (3 ml) UD INH SCH (17:00)
[2017-03-11 20:48] LABS: RBC URINE < 1 /hpf (0-3); URINE BACTERIA RARE (<OCC); URINE BILIRUBIN NEGATIVE (NEGATIVE); URINE BLOOD NEGATIVE (NEGATIVE); URINE COLOR YELLOW (YELLOW); URINE GLUCOSE (UA) NEG (Normal); URINE KETONE NEGATIVE (NEGATIVE); URINE LEUKOCYTE ESTERASE NEG Leu/uL (Negative); URINE PROTEIN NEGATIVE (NEGATIVE); URINE UROBILINOGEN 0.2-1.0 mg/dL (0.2-1.0); WBC URINE 2 /hpf (0-5)
[2017-03-12] MEDS: Albuterol-Ipratrop 3 mg / 0.5 (3 ml) UD INH SCH ×4 (07:11→19:07)
[2017-03-12 07:29] LABS: BASO % 0.3 % (0.0-2.0); EOS # 0.2 K/uL (0.0-0.7); EOS % 1.9 % (0.0-4.0); HEMATOCRIT 30.4 % (34.0-47.0); LYMPH % 11.8 % (20.0-40.0); MEAN CELL VOLUME 90.1 fl (81.0-99.0); MEAN CORPUSCULAR HEMOGLOBIN 30.1 pg (27.0-31.0); MEAN CORPUSCULAR HGB CONC 33.4 g/dL (33.0-37.0); MEAN PLATELET VOLUME 8.4 fl (7.2-11.7); MONO # 0.4 K/uL (0.0-0.8); MONO % 4.9 % (0.0-10.0); NEUT % 81.1 % (50.0-75.0); RED CELL DISTRIBUTION WIDTH 14.1 % (11.5-14.5); WHITE BLOOD COUNT 8.6 K/uL (4.8-10.8)
[2017-03-12] MEDS: Enoxaparin 40 mg Syringe SC SCH (10:57)
--- NOTE | 2017-03-12 11:00 | CP.PCM.PN ---
Subjective - Date & Time of Evaluation Date of Evaluation: 03/12/17 Time of Evaluation: 11:00 - Subjective Subjective: Looks comfortable seated on EOB. Complaining mostly about constipation. Still has some dysuria, but less. Leukocytosis seems to have responded well to single antibiotic regimen. Cough is much less, but disruptive overnight, unable to sleep. No audible wheezes or bronchial breath sounds. Able to breathe deeply with only few episodes of cough. No rales, few lower lobe rhonchi. Will change to Mucinex DM and use benzonatate for breakthrough coughing. Enulose for constipation. Objective - Vital Signs/Intake and Output Vital Signs (last 24 hours): Temp Pulse Resp BP Pulse Ox 98.1 F 86 20 138/85 91 L 03/12/17 08:36 03/12/17 10:58 03/12/17 08:36 03/12/17 10:58 03/12/17 08:36 - Medications Medications: Current Medications Acetaminophen (Tylenol 325mg Tab) 650 mg PO Q6 PRN PRN Reason: Fever >100.4 F Last Admin: 03/11/17 07:44 Dose: 650 mg Albuterol Sulfate (Albuterol 0.083% Inhal Dionne (2.5 Mg/3 Ml) Ud) 2.5 mg INH RQ4 PRN PRN Reason: Shortness of Breath Albuterol/Ipratropium (Duoneb 3 Mg/0.5 Mg (3 Ml) Ud) 3 ml INH RQID [facility] Last Admin: 03/12/17 07:11 Dose: 3 ml Benzonatate (Tessalon Perles) 200 mg PO TID PRN PRN Reason: Cough Enoxaparin Sodium (Lovenox) 40 mg SC DAILY [facility] PRN Reason: Protocol Last Admin: 03/12/17 10:57 Dose: 40 mg Famotidine (Pepcid) 20 mg PO BID [facility] Last Admin: 03/12/17 10:57 Dose: 20 mg Guaifenesin/Dextromethorphan (Mucinex-Dm 600-30 Mg) 2 tab PO BID [facility] Ceftriaxone Sodium 1 gm/ (Sodium Chloride) 100 mls @ 100 mls/hr IVPB DAILY [facility] Last Admin: 03/12/17 10:54 Dose: 100 mls/hr Ketorolac Tromethamine (Toradol) 15 mg IVP Q6 PRN PRN Reason: Pain, moderate (4-7) Last Admin: 03/11/17 20:16 Dose: 15 mg Losartan Potassium (Cozaar) 12.5 mg PO DAILY [facility] Last Admin: 03/12/17 10:58 Dose: 12.5 mg Ondansetron HCl (Zofran Inj) 4 mg IVP Q6 PRN PRN Reason: Nausea/Vomiting - Labs Labs: 03/12/17 06:45 03/11/17 06:30 Assessment and Plan (1) Acute bronchitis Status: Acute (2) Renal colic on left side Status: Acute (3) UTI (urinary tract infection) Status: Acute
[2017-03-12] MEDS: Docusate-Senna 50 mg-8.6 mg Tab PO SCH (12:39)
--- NOTE | 2017-03-12 15:43 | RAD ---
HISTORY: cough COMPARISON: 03/10/2017. TECHNIQUE: Chest PA and lateral FINDINGS: LUNGS: No active pulmonary disease. PLEURA: No significant pleural effusion identified. No pneumothorax apparent. CARDIOVASCULAR: Cardiomegaly, stable pulmonary vascular congestion. OSSEOUS STRUCTURES: No significant abnormalities. VISUALIZED UPPER ABDOMEN: Normal. OTHER FINDINGS: None. IMPRESSION: No significant interval change compared to the prior examination(s).
--- NOTE | 2017-03-12 15:51 | CARD ---
APPROVED REPORT EXAM: Two-dimensional and M-mode echocardiogram with Doppler and color Doppler. Other Information Quality : AverageRhythm : NSR INDICATION Dyspnea M-Mode DIMENSIONS Left Atrium (MM)4.73 (2.5-4.0cm)IVSd1.29 (0.7-1.1cm) Aortic Root3.38 (2.2-3.7cm)LVDd5.23 (4.0-5.6cm) Aortic Cusp Exc.1.56 (1.5-2.0cm)PWd1.36 (0.7-1.1cm) IVSs1.46 cmFS (%) 30 % LVDs3.67 (2.0-3.8cm)PWs1.65 cm Mitral Valve E/A ratio0.0 TDI E/Lateral E'0.0E/Medial E'0.0 LEFT VENTRICLE The left ventricle is normal size. There is normal left ventricular wall thickness. Left ventricle systolic function is normal. The Ejection Fraction is 65-70%. There is normal LV segmental wall motion. Transmitral Doppler flow pattern is Grade I-abnormal relaxation pattern. RIGHT VENTRICLE The right ventricle is normal size. There is normal right ventricular wall thickness. The right ventricular systolic function is normal. ATRIA The left atrium size is normal. The right atrium size is normal. AORTIC VALVE The aortic valve is normal in structure and function. No aortic regurgitation is present. There is no aortic valvular stenosis. MITRAL VALVE Mitral annular calcification is moderate. There is no evidence of mitral valve prolapse. There is no mitral valve stenosis. Mitral regurgitation is moderate. TRICUSPID VALVE The tricuspid valve is normal in structure and function. There is no tricuspid valve regurgitation noted. PULMONIC VALVE The pulmonary valve is normal in structure and function. There is no pulmonic valvular regurgitation. GREAT VESSELS The aortic root is normal in size. The IVC is normal in size and collapses >50% with inspiration. PERICARDIAL EFFUSION The pericardium appears normal. <Conclusion> The left ventricle is normal size. There is normal left ventricular wall thickness. There is normal LV segmental wall motion. Left ventricle systolic function is normal. The Ejection Fraction is 65-70%. Transmitral Doppler flow pattern is Grade I-abnormal relaxation pattern. Mitral regurgitation is moderate.
[2017-03-12] MEDS: guaiFENesin-DM 600-30 mg ER Tab PO SCH (17:26)
--- NOTE | 2017-03-12 17:41 | CP.PCM.PN ---
<Jerica Do - Last Filed: 03/12/17 17:34> Subjective - Date & Time of Evaluation Date of Evaluation: 03/12/17 Time of Evaluation: 08:05 - Subjective Subjective: Patient was seen and examined at bedside. Still complaining of right flank pain reproduced with movements. Patient still coughing, associated with scant sputum production. Afebrile. Denies CP, N/V, urinary symptoms, diarrheas. Objective - Vital Signs/Intake and Output Vital Signs (last 24 hours): Temp Pulse Resp BP Pulse Ox 98.3 F 71 20 114/67 95 03/12/17 16:05 03/12/17 16:05 03/12/17 16:05 03/12/17 16:05 03/12/17 16:05 - Medications Medications: Current Medications Acetaminophen (Tylenol 325mg Tab) 650 mg PO Q6 PRN PRN Reason: Fever >100.4 F Last Admin: 03/11/17 07:44 Dose: 650 mg Albuterol Sulfate (Albuterol 0.083% Inhal Dionne (2.5 Mg/3 Ml) Ud) 2.5 mg INH RQ4 PRN PRN Reason: Shortness of Breath Albuterol/Ipratropium (Duoneb 3 Mg/0.5 Mg (3 Ml) Ud) 3 ml INH RQID [facility] Last Admin: 03/12/17 15:42 Dose: 3 ml Benzonatate (Tessalon Perles) 200 mg PO TID PRN PRN Reason: Cough Last Admin: 03/12/17 17:27 Dose: 200 mg Enoxaparin Sodium (Lovenox) 40 mg SC DAILY [facility] PRN Reason: Protocol Last Admin: 03/12/17 10:57 Dose: 40 mg Famotidine (Pepcid) 20 mg PO BID [facility] Last Admin: 03/12/17 17:28 Dose: 20 mg Guaifenesin/Dextromethorphan (Mucinex-Dm 600-30 Mg) 2 tab PO BID [facility] Last Admin: 03/12/17 17:26 Dose: 2 tab Ceftriaxone Sodium 1 gm/ (Sodium Chloride) 100 mls @ 100 mls/hr IVPB DAILY [facility] Last Admin: 03/12/17 10:54 Dose: 100 mls/hr Ketorolac Tromethamine (Toradol) 15 mg IVP Q6 PRN PRN Reason: Pain, moderate (4-7) Last Admin: 03/11/17 20:16 Dose: 15 mg Lactulose (Enulose) 20 gm PO DAILY PRN PRN Reason: Constipation Losartan Potassium (Cozaar) 12.5 mg PO DAILY [facility] Last Admin: 03/12/17 10:58 Dose: 12.5 mg Ondansetron HCl (Zofran Inj) 4 mg IVP Q6 PRN PRN Reason: Nausea/Vomiting Senna/Docusate Sodium (Senokot S 50 Mg-8.6 Mg) 2 tab PO DAILY [facility] Last Admin: 03/12/17 12:39 Dose: 2 tab - Labs Labs: 03/12/17 06:45 03/11/17 06:30 - Additional Findings Additional findings: Constitutional Appears: Non-toxic, No Acute Distress - ENT Exam ENT Exam: Mucous Membranes Moist - Respiratory Exam Respiratory Exam: Rales (fine, diffuse left lower lung crackles to auscultation. Diffuse, scant expiratory rhonchi), NORMAL BREATHING PATTERN - Cardiovascular Exam Cardiovascular Exam: REGULAR RHYTHM, +S1, +S2 - GI/Abdominal Exam GI & Abdominal Exam: Soft, Normal Bowel Sounds. absent: Guarding, Rigid, Tenderness - Extremities Exam Extremities Exam: Normal Inspection. absent: Calf Tenderness - Neurological Exam Neurological Exam: Alert, Awake, Oriented x3 - Skin Skin Exam: Dry, Intact, Normal Color Assessment and Plan - Assessment and Plan (Free Text) Assessment: 77 y/o F with PMHx of HTN, Hyperlipidemia, Obesity, Anxiety, Kidney stones with recent acute bronchitis diagnosis and Tx, admitted with Right flank pain, associated with dysuria, nausea, vomiting, fevers being f/u for clinical condition. Plan: Acute pyelonephritis Patienyt came with PO intolerance, now improving -Still symptomatic, flank pain, right sided' nausea, vomiting, spiking fever 101.2 F -WBC: still elevated, trending up 22.6 -Urine culture pending -c/w Ceftriaxone 1gm IV daily -c/w Toradol prn for pain -c/w with Zofran PRN for nausea -Continue advancing diet as tolerated -Patient has history of kidney stones, however abdominal CT did not detect any evidence of nephrolithiasis or hydronephrosis -Urinary bladder wall appears slightly thickened on CT, which may be consistent with cystitis Acute bronchitis Viral vs Bacterial -Patient is currently being treated for acute bronchitis by PCP. -Patient clinical condition no improved after Azythromycin PO -s/p Azythromycin x 5 days -c/w Duoneb Q8h [facility] -c/w Tessalon PO TID PRN -Pulmunology consult appreciated, Dr. Fernando. F/U recommendations -Consider antibiotic treatment: discuss Levofloxacin, Zosyn) that can coverage UTI and resp infection -CXR showed increased pulmonary vascular congestion and hazy opacity in the lung bases. Hypertension -c/w with home medication -Losartan 12.5 mg PO daily -Pro-BNP -Echo pending Hyperlipidemia -Patient reports prior history of hyperlipidemia which is not currently medically managed -Consider F/u as outpatient DVT Prophylaxis -Lovenox 40mg SC daily <Lyndon Porter - Last Filed: 03/13/17 06:53> Objective - Vital Signs/Intake and Output Vital Signs (last 24 hours): Temp Pulse Resp BP Pulse Ox 97.6 F 86 18 136/86 99 03/13/17 01:11 03/13/17 01:11 03/13/17 01:11 03/13/17 01:11 03/13/17 01:11 - Medications Medications: Current Medications Acetaminophen (Tylenol 325mg Tab) 650 mg PO Q6 PRN PRN Reason: Fever >100.4 F Last Admin: 03/11/17 07:44 Dose: 650 mg Albuterol Sulfate (Albuterol 0.083% Inhal Dionne (2.5 Mg/3 Ml) Ud) 2.5 mg INH RQ4 PRN PRN Reason: Shortness of Breath Albuterol/Ipratropium (Duoneb 3 Mg/0.5 Mg (3 Ml) Ud) 3 ml INH RQID [facility] Last Admin: 03/12/17 19:07 Dose: 3 ml Benzonatate (Tessalon Perles) 200 mg PO TID PRN PRN Reason: Cough Last Admin: 03/12/17 17:27 Dose: 200 mg Enoxaparin Sodium (Lovenox) 40 mg SC DAILY [facility] PRN Reason: Protocol Last Admin: 03/12/17 10:57 Dose: 40 mg Famotidine (Pepcid) 20 mg PO BID [facility] Last Admin: 03/12/17 17:28 Dose: 20 mg Guaifenesin/Dextromethorphan (Mucinex-Dm 600-30 Mg) 2 tab PO BID [facility] Last Admin: 03/12/17 17:26 Dose: 2 tab Ceftriaxone Sodium 1 gm/ (Sodium Chloride) 100 mls @ 100 mls/hr IVPB DAILY [facility] Last Admin: 03/12/17 10:54 Dose: 100 mls/hr Ketorolac Tromethamine (Toradol) 15 mg IVP Q6 PRN PRN Reason: Pain, moderate (4-7) Last Admin: 03/12/17 21:53 Dose: 15 mg Lactulose (Enulose) 20 gm PO DAILY PRN PRN Reason: Constipation Losartan Potassium (Cozaar) 12.5 mg PO DAILY [facility] Last Admin: 03/12/17 10:58 Dose: 12.5 mg Ondansetron HCl (Zofran Inj) 4 mg IVP Q6 PRN PRN Reason: Nausea/Vomiting Senna/Docusate Sodium (Senokot S 50 Mg-8.6 Mg) 2 tab PO DAILY [facility] Last Admin: 03/12/17 12:39 Dose: 2 tab - Labs Labs: 03/12/17 06:45 03/11/17 06:30 Attending/Attestation - Attestation I have personally seen and examined this patient.: Yes I have fully participated in the care of the patient.: Yes I have reviewed all pertinent clinical information, including history, physical exam and plan: Yes
[2017-03-13] MEDS: Albuterol-Ipratrop 3 mg / 0.5 (3 ml) UD INH SCH ×4 (08:42→20:27)
[2017-03-13] MEDS: Docusate-Senna 50 mg-8.6 mg Tab PO SCH (10:43)
[2017-03-13] MEDS: Enoxaparin 40 mg Syringe SC SCH (10:47)
[2017-03-13] MEDS: guaiFENesin-DM 600-30 mg ER Tab PO SCH ×2 (10:48→17:59)
--- NOTE | 2017-03-13 16:51 | CP.PCM.PN ---
<Carlos Doth - Last Filed: 03/13/17 16:48> Subjective - Date & Time of Evaluation Date of Evaluation: 03/13/17 Time of Evaluation: 08:25 - Subjective Subjective: Patient was seen and examined at bedside., Still complaining of right flank pain , however improving compared with yesterday. Reports that pain is reproduced with movements, and with urination. Denies nausea, vomiting, abdominal pain, diarrheas. Still with cough and sputum production, but improving. Objective - Vital Signs/Intake and Output Vital Signs (last 24 hours): Temp Pulse Resp BP Pulse Ox 98.1 F 73 20 121/75 94 L 03/13/17 16:23 03/13/17 16:23 03/13/17 16:23 03/13/17 16:23 03/13/17 16:23 - Medications Medications: Current Medications Acetaminophen (Tylenol 325mg Tab) 650 mg PO Q6 PRN PRN Reason: Fever >100.4 F Last Admin: 03/11/17 07:44 Dose: 650 mg Albuterol Sulfate (Albuterol 0.083% Inhal Dionne (2.5 Mg/3 Ml) Ud) 2.5 mg INH RQ4 PRN PRN Reason: Shortness of Breath Albuterol/Ipratropium (Duoneb 3 Mg/0.5 Mg (3 Ml) Ud) 3 ml INH RQID [facility] Last Admin: 03/13/17 15:26 Dose: 3 ml Benzonatate (Tessalon Perles) 200 mg PO TID PRN PRN Reason: Cough Last Admin: 03/13/17 10:44 Dose: 200 mg Enoxaparin Sodium (Lovenox) 40 mg SC DAILY [facility] PRN Reason: Protocol Last Admin: 03/13/17 10:47 Dose: 40 mg Famotidine (Pepcid) 20 mg PO BID [facility] Last Admin: 03/13/17 10:43 Dose: 20 mg Guaifenesin/Dextromethorphan (Mucinex-Dm 600-30 Mg) 2 tab PO BID [facility] Last Admin: 03/13/17 10:48 Dose: Not Given Ceftriaxone Sodium 1 gm/ (Sodium Chloride) 100 mls @ 100 mls/hr IVPB DAILY [facility] Last Admin: 03/13/17 10:48 Dose: 100 mls/hr Ketorolac Tromethamine (Toradol) 15 mg IVP Q6 PRN PRN Reason: Pain, moderate (4-7) Last Admin: 03/13/17 10:55 Dose: 15 mg Lactulose (Enulose) 20 gm PO DAILY PRN PRN Reason: Constipation Losartan Potassium (Cozaar) 12.5 mg PO DAILY [facility] Last Admin: 03/13/17 10:45 Dose: 12.5 mg Ondansetron HCl (Zofran Inj) 4 mg IVP Q6 PRN PRN Reason: Nausea/Vomiting Senna/Docusate Sodium (Senokot S 50 Mg-8.6 Mg) 2 tab PO DAILY [facility] Last Admin: 03/13/17 10:43 Dose: 2 tab - Labs Labs: 03/12/17 06:45 03/11/17 06:30 - Additional Findings Additional findings: Constitutional Appears: Non-toxic, No Acute Distress - ENT Exam ENT Exam: Mucous Membranes Moist - Respiratory Exam Respiratory Exam: Rales (scant, fine, diffuse left lower lung crackles to auscultation. NORMAL BREATHING PATTERN, no rhonchi or wheezing - Cardiovascular Exam Cardiovascular Exam: REGULAR RHYTHM, +S1, +S2 - GI/Abdominal Exam GI & Abdominal Exam: Soft, Normal Bowel Sounds. absent: Guarding, Rigid, Tenderness - Extremities Exam Extremities Exam: Normal Inspection. absent: Calf Tenderness - Neurological Exam Neurological Exam: Alert, Awake, Oriented x3 - Skin Skin Exam: Dry, Intact, Normal Color Assessment and Plan - Assessment and Plan (Free Text) Assessment: 77 y/o F with PMHx of HTN, Hyperlipidemia, Obesity, Anxiety, Kidney stones with recent acute bronchitis diagnosis and Tx, admitted with Right flank pain, associated with dysuria, nausea, vomiting, fevers being f/u for clinical condition that is improving. Plan: Acute pyelonephritis Patient came with PO intolerance, now improving -Still symptomatic for flank pain, right sided -WBC: WNL today -Urine culture neg -Blood Cx neg for 48 hours -c/w Ceftriaxone 1gm IV daily day #4 -c/w Toradol prn for pain -c/w with Zofran PRN for nausea -Tolerating diet -Patient has history of kidney stones, however abdominal CT did not detect any evidence of nephrolithiasis or hydronephrosis -Urinary bladder wall appears slightly thickened on CT, which may be consistent with cystitis -Anticipated DC on 03/14/17: consider Levaquin 500 mg daily for 10 days( complete 14 days) or Keflex 500 mg BID for 10 days(complete 14 days) as per Dr. Shankar recommendations. Acute bronchitis Viral vs Bacterial -Patient is currently being treated for acute bronchitis by PCP. -Patient clinical condition no improved after Azythromycin PO -s/p Azythromycin x 5 days -c/w Duoneb Q8h BHANU -c/w Tessalon PO TID PRN -Pulmunology consult appreciated, Dr. Fernando. F/U recommendations -CXR showed increased pulmonary vascular congestion and hazy opacity in the lung bases. Hypertension -c/w with home medication -Losartan 12.5 mg PO daily -Pro-BNP -Echo pending Hyperlipidemia -Patient reports prior history of hyperlipidemia which is not currently medically managed -Consider F/u as outpatient DVT Prophylaxis -Lovenox 40mg SC daily <Lyndon Shankar - Last Filed: 03/15/17 06:57> Objective - Vital Signs/Intake and Output Vital Signs (last 24 hours): Temp Pulse Resp BP Pulse Ox 98.2 F 93 H 20 134/76 93 L 03/15/17 00:33 03/15/17 00:33 03/15/17 00:33 03/15/17 00:33 03/15/17 00:33 - Medications Medications: Current Medications Acetaminophen (Tylenol 325mg Tab) 650 mg PO Q6 PRN PRN Reason: Fever >100.4 F Last Admin: 03/11/17 07:44 Dose: 650 mg Albuterol Sulfate (Albuterol 0.083% Inhal Dionne (2.5 Mg/3 Ml) Ud) 2.5 mg INH RQ4 PRN PRN Reason: Shortness of Breath Albuterol/Ipratropium (Duoneb 3 Mg/0.5 Mg (3 Ml) Ud) 3 ml INH RQID [facility] Last Admin: 03/14/17 21:08 Dose: 3 ml Benzonatate (Tessalon Perles) 200 mg PO TID PRN PRN Reason: Cough Last Admin: 03/14/17 16:03 Dose: 200 mg Enoxaparin Sodium (Lovenox) 40 mg SC DAILY [facility] PRN Reason: Protocol Last Admin: 03/14/17 08:13 Dose: 40 mg Famotidine (Pepcid) 20 mg PO BID [facility] Last Admin: 03/14/17 16:02 Dose: 20 mg Guaifenesin/Dextromethorphan (Mucinex-Dm 600-30 Mg) 2 tab PO BID [facility] Last Admin: 03/14/17 16:01 Dose: Not Given Ketorolac Tromethamine (Toradol) 15 mg IVP Q6 PRN PRN Reason: Pain, moderate (4-7) Last Admin: 03/15/17 06:13 Dose: 15 mg Lactulose (Enulose) 20 gm PO DAILY PRN PRN Reason: Constipation Levofloxacin (Levaquin) 500 mg PO DAILY [facility] Last Admin: 03/14/17 17:01 Dose: 500 mg Losartan Potassium (Cozaar) 12.5 mg PO DAILY [facility] Last Admin: 03/14/17 08:11 Dose: 12.5 mg Ondansetron HCl (Zofran Inj) 4 mg IVP Q6 PRN PRN Reason: Nausea/Vomiting Senna/Docusate Sodium (Senokot S 50 Mg-8.6 Mg) 2 tab PO DAILY [facility] Last Admin: 03/14/17 08:11 Dose: 2 tab - Labs Labs: 03/14/17 07:00 03/14/17 07:00 Attending/Attestation - Attestation I have personally seen and examined this patient.: Yes I have fully participated in the care of the patient.: Yes I have reviewed all pertinent clinical information, including history, physical exam and plan: Yes
[2017-03-14 08:03] LABS: HEMATOCRIT 33.9 % (34.0-47.0); MEAN CELL VOLUME 89.7 fl (81.0-99.0); MEAN CORPUSCULAR HEMOGLOBIN 30.2 pg (27.0-31.0); MEAN CORPUSCULAR HGB CONC 33.7 g/dL (33.0-37.0); RED CELL DISTRIBUTION WIDTH 14.1 % (11.5-14.5); WHITE BLOOD COUNT 7.6 K/uL (4.8-10.8)
[2017-03-14 08:10] LABS: BLOOD UREA NITROGEN 13 mg/dl (7-17); CALCIUM 9.2 mg/dL (8.4-10.2); CARBON DIOXIDE 27 mmol/L (22-30); CHLORIDE 106 mmol/L (98-107); GFR AFRICAN-AMERICAN > 60; GLUCOSE,RANDOM 107 mg/dL (65-105); POTASSIUM 4.7 MMOL/L (3.6-5.0); SODIUM 142 mmol/l (132-148)
[2017-03-14] MEDS: Docusate-Senna 50 mg-8.6 mg Tab PO SCH (08:11)
[2017-03-14] MEDS: Albuterol-Ipratrop 3 mg / 0.5 (3 ml) UD INH SCH ×4 (08:13→21:08)
[2017-03-14] MEDS: guaiFENesin-DM 600-30 mg ER Tab PO SCH ×2 (08:13→16:01)
[2017-03-14] MEDS: Enoxaparin 40 mg Syringe SC SCH (08:13)
--- NOTE | 2017-03-14 14:35 | CP.PCM.PN ---
<Dasia Hilliard - Last Filed: 03/14/17 18:54> Subjective - Date & Time of Evaluation Date of Evaluation: 03/14/17 Time of Evaluation: 08:15 - Subjective Subjective: Patient seen and examined bedside. Reports feeling much better, but continues to have intermittent back pain. She is voiding without difficulty, dysuria or hematuria. She has not had fevers or chills. Pain is well controlled when given Toradol. but she rates it very severe when present. Admits to cough, Denies chest pain, dyspnea, abdominal pain, nausea/vomiting, pedal edema. Objective - Vital Signs/Intake and Output Vital Signs (last 24 hours): Temp Pulse Resp BP Pulse Ox 98.0 F 89 18 156/83 H 98 03/14/17 07:44 03/14/17 08:11 03/14/17 07:44 03/14/17 08:11 03/14/17 07:44 - Medications Medications: Current Medications Acetaminophen (Tylenol 325mg Tab) 650 mg PO Q6 PRN PRN Reason: Fever >100.4 F Last Admin: 03/11/17 07:44 Dose: 650 mg Albuterol Sulfate (Albuterol 0.083% Inhal Dionne (2.5 Mg/3 Ml) Ud) 2.5 mg INH RQ4 PRN PRN Reason: Shortness of Breath Albuterol/Ipratropium (Duoneb 3 Mg/0.5 Mg (3 Ml) Ud) 3 ml INH RQID [facility] Last Admin: 03/14/17 12:12 Dose: 3 ml Benzonatate (Tessalon Perles) 200 mg PO TID PRN PRN Reason: Cough Last Admin: 03/14/17 08:08 Dose: 200 mg Enoxaparin Sodium (Lovenox) 40 mg SC DAILY [facility] PRN Reason: Protocol Last Admin: 03/14/17 08:13 Dose: 40 mg Famotidine (Pepcid) 20 mg PO BID [facility] Last Admin: 03/14/17 08:13 Dose: 20 mg Guaifenesin/Dextromethorphan (Mucinex-Dm 600-30 Mg) 2 tab PO BID [facility] Last Admin: 03/14/17 08:13 Dose: Not Given Ceftriaxone Sodium 1 gm/ (Sodium Chloride) 100 mls @ 100 mls/hr IVPB DAILY [facility] Last Admin: 03/14/17 08:14 Dose: 100 mls/hr Ketorolac Tromethamine (Toradol) 15 mg IVP Q6 PRN PRN Reason: Pain, moderate (4-7) Last Admin: 03/14/17 08:04 Dose: 15 mg Lactulose (Enulose) 20 gm PO DAILY PRN PRN Reason: Constipation Losartan Potassium (Cozaar) 12.5 mg PO DAILY [facility] Last Admin: 03/14/17 08:11 Dose: 12.5 mg Ondansetron HCl (Zofran Inj) 4 mg IVP Q6 PRN PRN Reason: Nausea/Vomiting Senna/Docusate Sodium (Senokot S 50 Mg-8.6 Mg) 2 tab PO DAILY [facility] Last Admin: 03/14/17 08:11 Dose: 2 tab - Labs Labs: 03/14/17 07:00 03/14/17 07:00 - Constitutional Appears: Well, Non-toxic - Head Exam Head Exam: NORMAL INSPECTION - Eye Exam Eye Exam: Normal appearance - ENT Exam ENT Exam: Mucous Membranes Moist - Respiratory Exam Respiratory Exam: Rales (scant, diffuse ), NORMAL BREATHING PATTERN Additional comments: cough+ - Cardiovascular Exam Cardiovascular Exam: REGULAR RHYTHM, +S1, +S2 - GI/Abdominal Exam GI & Abdominal Exam: Soft, Normal Bowel Sounds - Extremities Exam Extremities Exam: absent: Pedal Edema - Back Exam Back Exam: CVA tenderness (R) - Neurological Exam Neurological Exam: Alert, Awake, CN II-XII Intact, Oriented x3 - Psychiatric Exam Psychiatric exam: Anxious - Skin Skin Exam: Dry, Intact, Normal Color Assessment and Plan - Assessment and Plan (Free Text) Assessment: 77 year old female admitted for acute pyelonephritis continues to have right CVA tenderness. Acute pyelonephritis -Improved, Patient is afebrile and tolerating PO diet however still symptomatic with right sided flank pain. -Start levaquin 500mg PO daily, d/c Rocephin: completed 5 days of IV -Urine culture neg, Blood Cx neg for 48 hours -c/w Toradol prn for pain -c/w with Zofran PRN for nausea -imaging reviewed, negative for nephrolithiasis, suggestive of cystitis. -Anticipated DC on 03/15/17:d/c on Levaquin 500 mg daily for [address] Shankar recommendations. Discussed with Dr. Shankar. repeat UA, urine C&S, f/u KUB to rule out nephrolithiasis Acute bronchitis Viral vs Bacterial, persistent cough -Patient s/p 5 day course of Azithromycin -c/w Duoneb Q8h [facility]ANU -c/w Tessalon PO TID PRN -Pulmonary consult appreciated, Dr. Fernando. F/U recommendations -cxr reviewed. Hypertension -c/w with home medication -Losartan 12.5 mg PO daily -Echo : EF 65-70%, moderate mitral valve regurgitation. Hyperlipidemia -Patient reports prior history of hyperlipidemia which is not currently medically managed -Consider F/u as outpatient DVT Prophylaxis -Lovenox 40mg SC daily <Lyndon Shankar - Last Filed: 03/15/17 07:00> Objective - Vital Signs/Intake and Output Vital Signs (last 24 hours): Temp Pulse Resp BP Pulse Ox 98.2 F 93 H 20 134/76 93 L 03/15/17 00:33 03/15/17 00:33 03/15/17 00:33 03/15/17 00:33 03/15/17 00:33 - Medications Medications: Current Medications Acetaminophen (Tylenol 325mg Tab) 650 mg PO Q6 PRN PRN Reason: Fever >100.4 F Last Admin: 03/11/17 07:44 Dose: 650 mg Albuterol Sulfate (Albuterol 0.083% Inhal Dionne (2.5 Mg/3 Ml) Ud) 2.5 mg INH RQ4 PRN PRN Reason: Shortness of Breath Albuterol/Ipratropium (Duoneb 3 Mg/0.5 Mg (3 Ml) Ud) 3 ml INH RQID [facility] Last Admin: 03/14/17 21:08 Dose: 3 ml Benzonatate (Tessalon Perles) 200 mg PO TID PRN PRN Reason: Cough Last Admin: 03/14/17 16:03 Dose: 200 mg Enoxaparin Sodium (Lovenox) 40 mg SC DAILY [facility] PRN Reason: Protocol Last Admin: 03/14/17 08:13 Dose: 40 mg Famotidine (Pepcid) 20 mg PO BID [facility] Last Admin: 03/14/17 16:02 Dose: 20 mg Guaifenesin/Dextromethorphan (Mucinex-Dm 600-30 Mg) 2 tab PO BID [facility] Last Admin: 03/14/17 16:01 Dose: Not Given Ketorolac Tromethamine (Toradol) 15 mg IVP Q6 PRN PRN Reason: Pain, moderate (4-7) Last Admin: 03/15/17 06:13 Dose: 15 mg Lactulose (Enulose) 20 gm PO DAILY PRN PRN Reason: Constipation Levofloxacin (Levaquin) 500 mg PO DAILY [facility] Last Admin: 03/14/17 17:01 Dose: 500 mg Losartan Potassium (Cozaar) 12.5 mg PO DAILY [facility] Last Admin: 03/14/17 08:11 Dose: 12.5 mg Ondansetron HCl (Zofran Inj) 4 mg IVP Q6 PRN PRN Reason: Nausea/Vomiting Senna/Docusate Sodium (Senokot S 50 Mg-8.6 Mg) 2 tab PO DAILY [facility] Last Admin: 03/14/17 08:11 Dose: 2 tab - Labs Labs: 03/14/17 07:00 03/14/17 07:00 Attending/Attestation - Attestation I have personally seen and examined this patient.: Yes I have fully participated in the care of the patient.: Yes I have reviewed all pertinent clinical information, including history, physical exam and plan: Yes
[2017-03-14 16:18] LABS: RBC URINE 3 /hpf (0-3); URINE BACTERIA FEW (<OCC); URINE BILIRUBIN NEGATIVE (NEGATIVE); URINE BLOOD NEGATIVE (NEGATIVE); URINE COLOR YELLOW (YELLOW); URINE GLUCOSE (UA) NEG (Normal); URINE KETONE NEGATIVE (NEGATIVE); URINE LEUKOCYTE ESTERASE NEG Leu/uL (Negative); URINE PROTEIN NEGATIVE (NEGATIVE); URINE UROBILINOGEN 0.2-1.0 mg/dL (0.2-1.0); WBC URINE < 1 /hpf (0-5)
[2017-03-14] MEDS: levoFLOXacin 500 MG TAB PO SCH (17:01)
[2017-03-15 07:43] VITALS: RESP 18; TEMP 97.9; O2SAT 96
[2017-03-15] MEDS: Albuterol-Ipratrop 3 mg / 0.5 (3 ml) UD INH SCH (08:19)
[2017-03-15] MEDS: guaiFENesin-DM 600-30 mg ER Tab PO SCH (08:31)
[2017-03-15] MEDS: Enoxaparin 40 mg Syringe SC SCH (08:31)
[2017-03-15] MEDS: Docusate-Senna 50 mg-8.6 mg Tab PO SCH (08:31)
[2017-03-15] MEDS: levoFLOXacin 500 MG TAB PO SCH (08:32)
[2017-03-15 08:34] VITALS: BP 129/88; PULSE 62
[2017-03-15] MEDS ORDERED: levoFLOXacin 500 MG TAB PO SCH (09:00)
--- NOTE | 2017-03-15 09:08 | CP.PCM.DIS ---
<Dasia Hilliard - Last Filed: 03/15/17 19:44> Provider - Provider Date of Admission: 03/10/17 19:37 Attending physician: Lyndon Shankar MD Time Spent in preparation of Discharge (in minutes): 30 Diagnosis - Discharge Diagnosis (1) Pyelonephritis Status: Resolved (2) Acute bronchitis Status: Resolved Priority: High Hospital Course - Lab Results Lab Results: Micro Results 03/10/17 20:26 Blood-Venous Blood Culture - Preliminary NO GROWTH AFTER 4 DAYS 03/10/17 20:26 Blood-Venous Blood Culture - Preliminary NO GROWTH AFTER 4 DAYS 03/10/17 20:26 Urine,Clean Catch Urine Culture - Final No Growth (<1,000 CFU/ML) Most Recent Lab Values WBC 7.6 K/uL (4.8-10.8) 03/14/17 07:00 RBC 3.78 Mil/uL (3.80-5.20) L 03/14/17 07:00 Hgb 11.4 g/dL (12.0-16.0) L 03/14/17 07:00 Hct 33.9 % (34.0-47.0) L 03/14/17 07:00 MCV 89.7 fl (81.0-99.0) 03/14/17 07:00 MCH 30.2 pg (27.0-31.0) 03/14/17 07:00 MCHC 33.7 g/dL (33.0-37.0) 03/14/17 07:00 RDW 14.1 % (11.5-14.5) 03/14/17 07:00 Plt Count 257 K/uL (130-400) 03/14/17 07:00 MPV 8.4 fl (7.2-11.7) 03/12/17 06:45 Neut % (Auto) 81.1 % (50.0-75.0) H 03/12/17 06:45 Lymph % (Auto) 11.8 % (20.0-40.0) L 03/12/17 06:45 Avery % (Auto) 4.9 % (0.0-10.0) 03/12/17 06:45 Eos % (Auto) 1.9 % (0.0-4.0) 03/12/17 06:45 Baso % (Auto) 0.3 % (0.0-2.0) 03/12/17 06:45 Neut # 7.0 K/uL (1.8-7.0) 03/12/17 06:45 Lymph # 1.0 K/uL (1.0-4.3) 03/12/17 06:45 Avery # 0.4 K/uL (0.0-0.8) 03/12/17 06:45 Eos # 0.2 K/uL (0.0-0.7) 03/12/17 06:45 Baso # 0.0 K/uL (0.0-0.2) 03/12/17 06:45 Total Counted Cancelled 03/11/17 06:30 Neutrophils % (Manual) 90 % (42-75) H 03/10/17 20:26 Band Neutrophils % 4 % (0-2) H 03/10/17 20:26 Lymphocytes % (Manual) 2 % (20-50) L 03/10/17 20:26 Reactive Lymphs % 1 % (0-0) H 03/10/17 20:26 Monocytes % (Manual) 3 % (0-10) 03/10/17 20:26 Eosinophils % (Manual) Cancelled 03/11/17 06:30 Basophils % (Manual) Cancelled 03/11/17 06:30 Metamyelocytes % Cancelled 03/11/17 06:30 Myelocytes % Cancelled 03/11/17 06:30 Promyelocytes % Cancelled 03/11/17 06:30 Blast Cells % Cancelled 03/11/17 06:30 Plasma Cell % (Manual) Cancelled 03/11/17 06:30 Nucleated RBC % Cancelled 03/11/17 06:30 Hypersegmented Polys Cancelled 03/11/17 06:30 Smudge Cells Cancelled 03/11/17 06:30 Toxic Granulation Cancelled 03/11/17 06:30 Dohle Bodies Cancelled 03/11/17 06:30 Matteo Rods Cancelled 03/11/17 06:30 Platelet Estimate Normal (NORMAL) 03/10/17 20:26 Plt Clumps, EDTA Cancelled 03/11/17 06:30 Large Platelets Cancelled 03/11/17 06:30 Giant Platelets Cancelled 03/11/17 06:30 RBC Morphology Cancelled 03/11/17 06:30 Polychromasia Cancelled 03/11/17 06:30 Hypochromasia (manual) Cancelled 03/11/17 06:30 Poikilocytosis (manual Cancelled 03/11/17 06:30 Basophilic Stippling Cancelled 03/11/17 06:30 Anisocytosis (manual) Slight 03/10/17 20:26 Microcytosis (manual) Cancelled 03/11/17 06:30 Macrocytosis (manual) Cancelled 03/11/17 06:30 Spherocytes Cancelled 03/11/17 06:30 Sickle Cells Cancelled 03/11/17 06:30 Target Cells Cancelled 03/11/17 06:30 Tear Drop Cells Cancelled 03/11/17 06:30 Ovalocytes Cancelled 03/11/17 06:30 Stomatocytes Cancelled 03/11/17 06:30 Helmet Cells Cancelled 03/11/17 06:30 [place] Bodies Cancelled 03/11/17 06:30 [place] Cells Cancelled 03/11/17 06:30 Acanthocytes (Spur) Cancelled 03/11/17 06:30 Rouleaux Cancelled 03/11/17 06:30 Schistocytes Cancelled 03/11/17 06:30 Sodium 142 mmol/l (132-148) 03/14/17 07:00 Potassium 4.7 MMOL/L (3.6-5.0) 03/14/17 07:00 Chloride 106 mmol/L (98-107) 03/14/17 07:00 Carbon Dioxide 27 mmol/L (22-30) 03/14/17 07:00 Anion Gap 14 (10-20) 03/14/17 07:00 BUN 13 mg/dl (7-17) 03/14/17 07:00 Creatinine 0.8 mg/dL (0.7-1.2) 03/14/17 07:00 Est GFR ( Amer) > 60 03/14/17 07:00 Est GFR (Non-Af Amer) > 60 03/14/17 07:00 Random Glucose 107 mg/dL (65-105) H 03/14/17 07:00 Lactic Acid 1.6 MMOL/L (0.7-2.1) 03/10/17 20:25 Calcium 9.2 mg/dL (8.4-10.2) 03/14/17 07:00 Total Bilirubin 1.0 mg/dl (0.2-1.3) 03/10/17 20:26 AST 25 U/L (14-36) 03/10/17 20:26 ALT 28 U/L (9-52) 03/10/17 20:26 Alkaline Phosphatase 77 U/L (38-126) 03/10/17 20:26 Total Protein 7.1 G/DL (6.3-8.2) 03/10/17 20:26 Albumin 4.1 g/dL (3.5-5.0) 03/10/17 20: Globulin 3.0 gm/dL (2.2-3.9) 03/10/17 20: Albumin/Globulin Ratio 1.4 (1.0-2.1) 03/10/17 20:26 Urine Color Yellow (YELLOW) 03/14/17 15:45 Urine Clarity Clear (Clear) 03/14/17 15:45 Urine pH 6.0 (5.0-8.0) 03/14/17 15:45 Ur Specific Tennyson 1.009 (1.003-1.030) 03/14/17 15:45 Urine Protein Negative mg/dL (NEGATIVE) 03/14/17 15:45 Urine Glucose (UA) Neg mg/dL (Normal) 03/14/17 15:45 Urine Ketones Negative mg/dL (NEGATIVE) 03/14/17 15:45 Urine Blood Negative (NEGATIVE) 03/14/17 15:45 Urine Nitrate Negative (NEGATIVE) 03/14/17 15:45 Urine Bilirubin Negative (NEGATIVE) 03/14/17 15:45 Urine Urobilinogen 0.2-1.0 mg/dL (0.2-1.0) 03/14/17 15:45 Ur Leukocyte Esterase Neg Krystin/uL (Negative) 03/14/17 15:45 Urine RBC (Auto) 3 /hpf (0-3) 03/14/17 15:45 Urine Microscopic WBC < 1 /hpf (0-5) 03/14/17 15:45 Ur Squamous Epith Cells < 1 /hpf (0-5) 03/14/17 15:45 Urine Bacteria Few (<OCC) H 03/14/17 15:45 Hyaline Casts 3-5 /hpf (0-2) H 03/10/17 20:26 - Hospital Course Hospital Course: 77 year old female admitted for acute pyelonephritis, who also presented with acute bronchitis. Patient presented with right flank pain and associated with dysuria, nausea, vomiting, and fevers. At time of admission patient being treated for acute bronchitis with Zithromax, symptoms have improved. She was found to be febrile with leukocytosis on admission that has resolved, as well as UA +nitrates and urine culture + for e.coli. Blood cultures were negative. She was treated with Rocephin IV for 5 days, then switched to Levaquin 500mg PO. Patient clinically improved, has remained afebrile. Repeat urine cultures obtained, repeat UA negative. She has mild right sided tenderness likely musculoskeletal in nature. KUB was negative. Patient is stable for discharge on 10 day course of Levaquin 500mg PO. She will follow up with Dr. Shankar in 1 week. Discharge Exam - Head Exam Head Exam: NORMAL INSPECTION - Eye Exam Pupil Exam: NORMAL ACCOMODATION - Respiratory Exam Respiratory Exam: Clear to PA & Lateral, NORMAL BREATHING PATTERN - Cardiovascular Exam Cardiovascular Exam: REGULAR RHYTHM, +S1, +S2 - GI/Abdominal Exam GI & Abdominal Exam: Normal Bowel Sounds, Soft, Unremarkable. absent: Tenderness - Back Exam Back exam: paraspinal tenderness (right). absent: CVA tenderness (L), CVA tenderness (R) - Neurological Exam Neurological exam: Alert, CN II-XII Intact, Oriented x3 - Psychiatric Exam Psychiatric exam: Normal Affect, Normal Mood - Skin Skin Exam: Dry, Intact, Normal Color Discharge Plan - Discharge Medications Prescriptions: levoFLOXacin [Levaquin] 500 mg PO DAILY #10 tab - Follow Up Plan Condition: FAIR Disposition: HOME/ ROUTINE Patient education suggested?: No Instructions: Acute Pyelonephritis (DC) Referrals: Lyndon Shankar MD [Staff Provider] - <Lyndon Shankar - Last Filed: 03/18/17 07:02> Provider - Provider Date of Admission: 03/10/17 19:37 Attending physician: Lyndon Shankar MD Hospital Course - Lab Results Lab Results: Micro Results 03/14/17 15:45 Urine,Clean Catch Urine Culture - Final No Growth (<1,000 CFU/ML) 03/10/17 20:26 Blood-Venous Blood Culture - Final NO GROWTH AFTER 5 DAYS 03/10/17 20:26 Blood-Venous Gram Stain - Final TEST NOT PERFORMED 03/10/17 20:26 Blood-Venous Blood Culture - Final NO GROWTH AFTER 5 DAYS 03/10/17 20:26 Blood-Venous Gram Stain - Final TEST NOT PERFORMED 03/10/17 20:26 Urine,Clean Catch Urine Culture - Final No Growth (<1,000 CFU/ML) Most Recent Lab Values WBC 7.6 K/uL (4.8-10.8) 03/14/17 07:00 RBC 3.78 Mil/uL (3.80-5.20) L 03/14/17 07:00 Hgb 11.4 g/dL (12.0-16.0) L 03/14/17 07:00 Hct 33.9 % (34.0-47.0) L 03/14/17 07:00 MCV 89.7 fl (81.0-99.0) 03/14/17 07:00 MCH 30.2 pg (27.0-31.0) 03/14/17 07:00 MCHC 33.7 g/dL (33.0-37.0) 03/14/17 07:00 RDW 14.1 % (11.5-14.5) 03/14/17 07:00 Plt Count 257 K/uL (130-400) 03/14/17 07:00 MPV 8.4 fl (7.2-11.7) 03/12/17 06:45 Neut % (Auto) 81.1 % (50.0-75.0) H 03/12/17 06:45 Lymph % (Auto) 11.8 % (20.0-40.0) L 03/12/17 06:45 Avery % (Auto) 4.9 % (0.0-10.0) 03/12/17 06:45 Eos % (Auto) 1.9 % (0.0-4.0) 03/12/17 06:45 Baso % (Auto) 0.3 % (0.0-2.0) 03/12/17 06:45 Neut # 7.0 K/uL (1.8-7.0) 03/12/17 06:45 Lymph # 1.0 K/uL (1.0-4.3) 03/12/17 06:45 Avery # 0.4 K/uL (0.0-0.8) 03/12/17 06:45 Eos # 0.2 K/uL (0.0-0.7) 03/12/17 06:45 Baso # 0.0 K/uL (0.0-0.2) 03/12/17 06:45 Total Counted Cancelled 03/11/17 06:30 Neutrophils % (Manual) 90 % (42-75) H 03/10/17 20:26 Band Neutrophils % 4 % (0-2) H 03/10/17 20:26 Lymphocytes % (Manual) 2 % (20-50) L 03/10/17 20:26 Reactive Lymphs % 1 % (0-0) H 03/10/17 20:26 Monocytes % (Manual) 3 % (0-10) 03/10/17 20:26 Eosinophils % (Manual) Cancelled 03/11/17 06:30 Basophils % (Manual) Cancelled 03/11/17 06:30 Metamyelocytes % Cancelled 03/11/17 06:30 Myelocytes % Cancelled 03/11/17 06:30 Promyelocytes % Cancelled 03/11/17 06:30 Blast Cells % Cancelled 03/11/17 06:30 Plasma Cell % (Manual) Cancelled 03/11/17 06:30 Nucleated RBC % Cancelled 03/11/17 06:30 Hypersegmented Polys Cancelled 03/11/17 06:30 Smudge Cells Cancelled 03/11/17 06:30 Toxic Granulation Cancelled 03/11/17 06:30 Dohle Bodies Cancelled 03/11/17 06:30 Matteo Rods Cancelled 03/11/17 06:30 Platelet Estimate Normal (NORMAL) 03/10/17 20:26 Plt Clumps, EDTA Cancelled 03/11/17 06:30 Large Platelets Cancelled 03/11/17 06:30 Giant Platelets Cancelled 03/11/17 06:30 RBC Morphology Cancelled 03/11/17 06:30 Polychromasia Cancelled 03/11/17 06:30 Hypochromasia (manual) Cancelled 03/11/17 06:30 Poikilocytosis (manual Cancelled 03/11/17 06:30 Basophilic Stippling Cancelled 03/11/17 06:30 Anisocytosis (manual) Slight 03/10/17 20:26 Microcytosis (manual) Cancelled 03/11/17 06:30 Macrocytosis (manual) Cancelled 03/11/17 06:30 Spherocytes Cancelled 03/11/17 06:30 Sickle Cells Cancelled 03/11/17 06:30 Target Cells Cancelled 03/11/17 06:30 Tear Drop Cells Cancelled 03/11/17 06:30 Ovalocytes Cancelled 03/11/17 06:30 Stomatocytes Cancelled 03/11/17 06:30 Helmet Cells Cancelled 03/11/17 06:30 [place] Bodies Cancelled 03/11/17 06:30 [place] Cells Cancelled 03/11/17 06:30 Acanthocytes (Spur) Cancelled 03/11/17 06:30 Rouleaux Cancelled 03/11/17 06:30 Schistocytes Cancelled 03/11/17 06:30 Sodium 142 mmol/l (132-148) 03/14/17 07:00 Potassium 4.7 MMOL/L (3.6-5.0) 03/14/17 07:00 Chloride 106 mmol/L (98-107) 03/14/17 07:00 Carbon Dioxide 27 mmol/L (22-30) 03/14/17 07:00 Anion Gap 14 (10-20) 03/14/17 07:00 BUN 13 mg/dl (7-17) 03/14/17 07:00 Creatinine 0.8 mg/dL (0.7-1.2) 03/14/17 07:00 Est GFR ( Amer) > 60 03/14/17 07:00 Est GFR (Non-Af Amer) > 60 03/14/17 07:00 Random Glucose 107 mg/dL (65-105) H 03/14/17 07:00 Lactic Acid 1.6 MMOL/L (0.7-2.1) 03/10/17 20:25 Calcium 9.2 mg/dL (8.4-10.2) 03/14/17 07:00 Total Bilirubin 1.0 mg/dl (0.2-1.3) 03/10/17 20:26 AST 25 U/L (14-36) 03/10/17 20:26 ALT 28 U/L (9-52) 03/10/17 20:26 Alkaline Phosphatase 77 U/L (38-126) 03/10/17 20:26 Total Protein 7.1 G/DL (6.3-8.2) 03/10/17 20:26 Albumin 4.1 g/dL (3.5-5.0) 03/10/17 20:26 Globulin 3.0 gm/dL (2.2-3.9) 03/10/17 20:26 Albumin/Globulin Ratio 1.4 (1.0-2.1) 03/10/17 20:26 Urine Color Yellow (YELLOW) 03/14/17 15:45 Urine Clarity Clear (Clear) 03/14/17 15:45 Urine pH 6.0 (5.0-8.0) 03/14/17 15:45 Ur Specific [place] 1.009 (1.003-1.030) 03/14/17 15:45 Urine Protein Negative mg/dL (NEGATIVE) 03/14/17 15:45 Urine Glucose (UA) Neg mg/dL (Normal) 03/14/17 15:45 Urine Ketones Negative mg/dL (NEGATIVE) 03/14/17 15:45 Urine Blood Negative (NEGATIVE) 03/14/17 15:45 Urine Nitrate Negative (NEGATIVE) 03/14/17 15:45 Urine Bilirubin Negative (NEGATIVE) 03/14/17 15:45 Urine Urobilinogen 0.2-1.0 mg/dL (0.2-1.0) 03/14/17 15:45 Ur Leukocyte Esterase Neg Krystin/uL (Negative) 03/14/17 15:45 Urine RBC (Auto) 3 /hpf (0-3) 03/14/17 15:45 Urine Microscopic WBC < 1 /hpf (0-5) 03/14/17 15:45 Ur Squamous Epith Cells < 1 /hpf (0-5) 03/14/17 15:45 Urine Bacteria Few (<OCC) H 03/14/17 15:45 Hyaline Casts 3-5 /hpf (0-2) H 03/10/17 20:26 Attending/Attestation - Attestation I have personally seen and examined this patient.: Yes I have fully participated in the care of the patient.: Yes I have reviewed all pertinent clinical information, including history, physical exam and plan: Yes
--- NOTE | 2017-03-15 10:08 | RAD ---
HISTORY: r/o nephrolithiasis, right flank pain, +pyelonephr COMPARISON: No prior. FINDINGS: BOWEL: Mild retained feces. No bowel obstruction. No masses or abnormal calcifications. BONES: Mild lumbar dextroscoliosis. OTHER FINDINGS: None. IMPRESSION: Mild retained feces. Otherwise unremarkable.
== END 2017-03-15 10:45 | disposition home or self-care (01) | DRG 690 ==
LOC: H.ER 19:04 → H.ERHOLD 19:37 → H.MEDSURG1 22:07
PROVIDERS: ADMIT Family Medicine; ATTEND Family Medicine
DX: N10 Acute pyelonephritis (principal); J20.9 Acute bronchitis, unspecified; I12.9 Hypertensive chronic kidney disease with stage 1 through stage 4 chronic kidney disease, or unspecified chronic kidney disease; E78.5 Hyperlipidemia, unspecified; K59.00 Constipation, unspecified; N18.9 Chronic kidney disease, unspecified; F41.9 Anxiety disorder, unspecified; Z88.6 Allergy status to analgesic agent; E66.9 Obesity, unspecified; Z68.38 Body mass index [BMI] 38.0-38.9, adult; N23 Unspecified renal colic

== ENCOUNTER 2017-08-31 02:00 | Emergency (ER) | payer MEDICARE, OTHER ==
[2017-08-31 02:00] VITALS: BMI 39.6
[2017-08-31 02:10] VITALS: BP 131/107; PULSE 105; RESP 20; TEMP 98; O2SAT 97
--- NOTE | 2017-08-31 02:38 | ED PDOC ---
Lower Extremity Pain/Injury Time Seen by Provider: 08/31/17 02:12 Chief Complaint (Nursing): Lower Extremity Problem/Injury History Per: Patient History/Exam Limitations: no limitations Onset/Duration Of Symptoms: Days Current Symptoms Are (Timing): Still Present Additional History Per: Patient Additional Complaint(s): PT. had rotator cuff surgery on 08/13 and since has been sleeping in a chair because she cannot life flat, has developed leg swelling and was concerned because she was developing burning and redness. Denies cp/sob. Past Medical History Vital Signs: Last Vital Signs Temp 98.0 F 08/31/17 02:06 Pulse 105 H 08/31/17 02:06 Resp 20 08/31/17 02:06 BP 131/107 H 08/31/17 02:06 Pulse Ox 97 08/31/17 02:06 - Medical History PMH: Anemia, Anxiety, Arthritis, Bronchitis, HTN, Hypercholesterolemia, Kidney Stones (RIGHT), Pneumonia - Family History Family History: States: Unknown Family Hx - Home Medications Home Medications: Ambulatory Orders Medication Instructions Recorded Acetaminophen [Tylenol 325mg tab] 325 mg PO ASDIR PRN 08/13/17 Docusate [Colace] 100 mg PO DAILY PRN 08/13/17 Ibuprofen [Motrin Tab] 400 mg PO ASDIR PRN 08/13/17 LORazepam [Ativan] 0.5 mg PO BID PRN 08/13/17 Olmesartan Medoxomil [Benicar] 5 mg PO DAILY 08/13/17 Ondansetron [Zofran Tab] 8 mg PO DAILY PRN 08/13/17 Oxycodone HCl/Acetaminophen 5 - 325 mg PO Q6 PRN 08/13/17 [Endocet 5-325 Tablet] Cephalexin [cephalexin] 500 mg PO QID 7 Days cap 08/31/17 Ciclopirox 0.77% [Loprox 0.77%] 0.77 % TP BID #1 tube 08/31/17 - Allergies Allergies/Adverse Reactions: Allergies Allergy/AdvReac Type Severity Reaction Status Date / Time codeine Allergy NAUSEA Verified 08/31/17 02:06 naproxen [From Naprosyn] Allergy RASH Verified 08/31/17 02:06 Wells Criteria for PE - Wells Criteria for Pulmonary Embolism Clinical Signs and Symptoms of DVT: No P.E is #1 Diagnosis, or Equally Likely: No Heart Rate >100: No Immobilization at least 3 days;Surgery previous 4 weeks: Yes Previous, objectively diagnosed PE or DVT: No Hemoptysis: No Malignancy w/treatment within 6 months, or palliative: No Total Score: 1.5 Review of Systems ROS Statement: Except As Marked, All Systems Reviewed And Found Negative Musculoskeletal: Positive for: Leg Pain Physical Exam - Physical Exam Appears: Positive for: Well, Non-toxic, No Acute Distress Head Exam: Positive for: ATRAUMATIC, NORMAL INSPECTION, NORMOCEPHALIC Skin: Positive for: Normal Color, Warm, DRY Eye Exam: Positive for: EOMI, Normal appearance, PERRL ENT: Positive for: Normal ENT Inspection Neck: Positive for: Normal, Painless ROM Cardiovascular/Chest: Positive for: Regular Rate, Rhythm Respiratory: Positive for: CNT, Normal Breath Sounds Gastrointestinal/Abdominal: Positive for: Normal Exam, Bowel Sounds, Soft Back: Positive for: Normal Inspection Extremity: Positive for: Normal ROM, Pedal Edema (erythema to bilateral lower extremity, symmetric swelling of bilateral LE, 2+ DP's, neg calf tenderness, neg homanns sign) Neurologic/Psych: Positive for: Alert, Oriented - ECG O2 Sat by Pulse Oximetry: 97 Pulse Ox Interpretation: Normal Medical Decision Making Medical Decision Making: Pt. w/ leg swelling s/p surgery, do not suspect DVT at this time, will treat for cellulitis, encouraged to f/u w/ PMD, return precautions discussed. Disposition - Clinical Impression Clinical Impression: Cellulitis, Peripheral edema - Disposition Referrals: Lyndon Porter MD [Staff Provider] - Disposition: Routine/Home Disposition Time: 02:40 Condition: STABLE Additional Instructions: Purchase compression stockings and start elevating your legs above the level of your heart. If the symptoms don't improve in 2-3 days, see your primary care doctor or return to the ER for re-evaluation. Prescriptions: Cephalexin [cephalexin] 500 mg PO QID 7 Days cap Ciclopirox 0.77% [Loprox 0.77%] 0.77 % TP BID #1 tube Instructions: Tinea Pedis (ED), Cellulitis (ED), Leg Edema (ED)
== END 2017-08-31 02:55 | disposition home or self-care (01) ==
LOC: H.ER 02:00
DX: T81.89XA Other complications of procedures, not elsewhere classified, initial encounter (principal); L03.119 Cellulitis of unspecified part of limb

== ENCOUNTER 2017-10-12 16:33 | Observation (INO) | payer MEDICARE, OTHER ==
[2017-10-12 16:34] VITALS: BMI 39.6
--- NOTE | 2017-10-12 17:51 | ED PDOC ---
HPI: Chest Pain Time Seen by Provider: 10/12/17 16:59 Chief Complaint (Nursing): Chest Pain Chief Complaint (Provider): Chest pain History Per: Patient, Family History/Exam Limitations: no limitations Additional Complaint(s): Pt reports two episodes of sharp pain to L chest radiating to back today, lasted ~5 seconds, relieved on its own. Denies nausea, vomiting, SOB. Also c/ o chronic L shoulder pain. Past Medical History Reviewed: Nursing Documentation, Vital Signs Vital Signs: Last Vital Signs Temp 98.5 F 10/12/17 16:45 Pulse 94 H 10/12/17 16:45 Resp 20 10/12/17 16:45 BP 146/93 H 10/12/17 16:45 Pulse Ox 95 10/12/17 17:53 - Medical History PMH: Anemia, Anxiety, Arthritis, Bronchitis, HTN, Hypercholesterolemia, Kidney Stones (RIGHT), Pneumonia - Family History Family History: States: Unknown Family Hx - Living Arrangements Living Arrangements: With Family - Social History Current smoker - smoking cessation education provided: No Alcohol: None - Home Medications Home Medications: Ambulatory Orders Medication Instructions Recorded Acetaminophen [Tylenol 325mg tab] 325 mg PO ASDIR PRN 08/13/17 Docusate [Colace] 100 mg PO DAILY PRN 08/13/17 Ibuprofen [Motrin Tab] 400 mg PO ASDIR PRN 08/13/17 LORazepam [Ativan] 0.5 mg PO BID PRN 08/13/17 Olmesartan Medoxomil [Benicar] 5 mg PO DAILY 08/13/17 Ondansetron [Zofran Tab] 8 mg PO DAILY PRN 08/13/17 Oxycodone HCl/Acetaminophen 5 - 325 mg PO Q6 PRN 08/13/17 [Endocet 5-325 Tablet] Cephalexin [cephalexin] 500 mg PO QID 7 Days cap 08/31/17 Ciclopirox 0.77% [Loprox 0.77%] 0.77 % TP BID #1 tube 08/31/17 - Allergies Allergies/Adverse Reactions: Allergies Allergy/AdvReac Type Severity Reaction Status Date / Time codeine Allergy NAUSEA Verified 08/31/17 02:06 naproxen [From Naprosyn] Allergy RASH Verified 08/31/17 02:06 REJI Risk Score for UA/NSTEMI - REJI Risk Score Age > 64: YES 3 or more CAD Risk Factors: YES Known CAD (Stenosis greater than 50%): NO Aspirin use in past 7 days: NO Severe Angina: NO EKG ST changes greater than 0.5mm: NO Positive Cardiac Marker: NO REJI Score: 2 Risk %: 8% Review of Systems Constitutional: Negative for: Fever, Chills Cardiovascular: Positive for: Chest Pain. Negative for: Palpitations Respiratory: Negative for: Cough, Shortness of Breath Gastrointestinal: Negative for: Nausea, Vomiting, Abdominal Pain, Diarrhea Musculoskeletal: Positive for: Shoulder Pain. Negative for: Neck Pain Skin: Negative for: Rash, Lesions Neurological: Negative for: Weakness, Numbness, Headache, Dizziness Physical Exam - Reviewed Nursing Documentation Reviewed: Yes Vital Signs Reviewed: Yes - Physical Exam Appears: Positive for: Well, No Acute Distress Skin: Positive for: Normal Color, Warm, Dry Eye Exam: Positive for: Normal appearance, EOMI, PERRL Neck: Positive for: Normal, Painless ROM, Supple Cardiovascular/Chest: Positive for: Regular Rate, Rhythm Respiratory: Positive for: Normal Breath Sounds. 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 Negative for: Motor/Sensory Deficits - Laboratory Results Result Diagrams: 10/12/17 17:48 10/12/17 17:48 - ECG Interpretation Of ECG: SR @ 93, PVCs, LAD, no ST-T changes. O2 Sat by Pulse Oximetry: 95 Pulse Ox Interpretation: Normal Medical Decision Making Medical Decision Makin yo female with L chest pain. - labs - EKG - CXR - allergic to salicylates - beta andrea Accession No. : [id number] Patient Name / ID : KATHIE [id number] / [id number] Exam Date : 10/12/2017 17:27:13 ( Approved ) Study Comment : Sex / Age : F / 77Y Creator : Koby Zhao MD Dictator : Koby Zhao MD Terminal Gauger : Staffing Account Manager : Koby Zhao MD Approver2 : Report Date : 10/12/2017 17:51:37 My Comment : HISTORY: CP COMPARISON: 03/12/2017 FINDINGS: LUNGS: No active pulmonary disease. PLEURA: No significant pleural effusion identified, no pneumothorax apparent. CARDIOVASCULAR: Normal. OSSEOUS STRUCTURES: No significant abnormalities. VISUALIZED UPPER ABDOMEN: Normal. OTHER FINDINGS: None. IMPRESSION: No active disease. Disposition - Clinical Impression Clinical Impression: Chest pain - Patient ED Disposition Is Patient to be Admitted: Yes - Disposition Disposition Time: 18:43 Condition: STABLE Forms: [employer] (Citizen Of [place]) - Pt Status Changed To: Hospital Disposition Of: Observation - POA Present On Arrival: None
[2017-10-12 18:08] LABS: BASO % 0.3 % (0.0-2.0); EOS # 0.1 K/uL (0.0-0.7); EOS % 1.2 % (0.0-4.0); HEMOGLOBIN 10.7 g/dL (12.0-16.0); LYMPH # 1.2 K/uL (1.0-4.3); LYMPH % 21.2 % (20.0-40.0); MEAN CELL VOLUME 84.9 fl (81.0-99.0); MEAN CORPUSCULAR HEMOGLOBIN 27.4 pg (27.0-31.0); MEAN CORPUSCULAR HGB CONC 32.3 g/dL (33.0-37.0); MEAN PLATELET VOLUME 8.6 fl (7.2-11.7); MONO # 0.6 K/uL (0.0-0.8); MONO % 10.1 % (0.0-10.0); NEUT # 3.9 K/uL (1.8-7.0); NEUT % 67.2 % (50.0-75.0); RBC 3.91 Mil/uL (3.80-5.20); RED CELL DISTRIBUTION WIDTH 15.6 % (11.5-14.5); WHITE BLOOD COUNT 5.7 K/uL (4.8-10.8)
[2017-10-12 18:21] LABS: GFR AFRICAN-AMERICAN > 60; GFR NON-AFRICAN AMERICAN > 60
[2017-10-12 18:22] LABS: INR 1.2 (0.9-1.2); PARTIAL THROMBOPLASTIN TIME 28.2 Seconds (25.6-37.1); PROTHROMBIN TIME 13.2 Seconds (9.8-13.1)
[2017-10-12 18:29] LABS: ALB/GLOB RATIO 1.2 (1.0-2.1); ALT/SGPT 28 U/L (9-52); AST/SGOT 36 U/L (14-36); BLOOD UREA NITROGEN 16 mg/dl (7-17)
--- NOTE | 2017-10-12 21:00 | CP.PCM.HP ---
History of Present Illness - History of Present Illness History of Present Illness: 77 year old female presents after acute onset of pain under left breast, sharp lasted a few seconds, then radiated to her back. Pain did not radiate, no chest pressure,no shortness of breath, no nausea, vomiting. Pain subsided after patient sat up and massaged the area. She has no cardiac history. Cleared for shoulder surgery in Jul, echo was unremarkable. Noted recent illness last week, had gastroenteritis, nausea/vomiting/diarrhea that have since resolved. Currently without fevers or chills. Has been taking advil for shoulder pain, did have some retrosternal burning today. Has not been wearing bra, not cleared by ortho. Doing PT several times a week, left arm is suffering from overuse related pain and has had cortisone injection for same. Feeling better upon evaluation in ED. EKG in ED sinus rhythm, PACs. Pain had resolved. Patient accompanied by her daughter and grandaughter. PMH: Anxiety, obesity, HTN, HLD Medications: reviewed. Allergies: reviewed. Social : nonsmoker, social drinker Family hx: father at 71 due to heart, mother at 91 due to heart. Present on Admission - Present on Admission Any Indicators Present on Admission: No Review of Systems - Constitutional Constitutional: absent: Anorexia, Headache - EENT Eyes: absent: Blurred Vision, Change in Vision - Cardiovascular Cardiovascular: absent: Chest Pain, Dyspnea, Edema, Leg Edema, Palpitations, Syncope - Respiratory Respiratory: absent: Cough, Dyspnea, Pain on Inspiration, Chest Congestion - Gastrointestinal Gastrointestinal: absent: Abdominal Pain, Constipation, Diarrhea, Nausea - Genitourinary Genitourinary: absent: Dysuria - Neurological Neurological: absent: Dizziness, Numbness, Tingling Past Patient History - Infectious Disease Hx of Infectious Diseases: None - Past Medical History & Family History Past Medical History?: Yes - Past Social History Alcohol: None - CARDIAC Hx Hypercholesterolemia: Yes Hx Hypertension: Yes - PULMONARY Hx Bronchitis: Yes Hx Pneumonia: Yes - NEUROLOGICAL Hx Neurological Disorder: No - HEENT Hx HEENT Problems: Yes Hx Cataracts: Yes - RENAL Hx Kidney Stones: Yes (RIGHT) - ENDOCRINE/METABOLIC Hx Endocrine Disorders: No - HEMATOLOGICAL/ONCOLOGICAL Hx Anemia: Yes - INTEGUMENTARY Hx Dermatological Problems: No - MUSCULOSKELETAL/RHEUMATOLOGICAL Hx Arthritis: Yes - GASTROINTESTINAL Hx Gastrointestinal Disorders: No Hx Hemorrhoids: Yes Other/Comment: Hemorrhoids - GENITOURINARY/GYNECOLOGICAL Hx Genitourinary Disorders: No Hx Urinary Tract Infection: Yes - PSYCHIATRIC Hx Anxiety: Yes - SURGICAL HISTORY Hx Surgeries: Yes Hx Cataract Extraction: Yes (ou 2012) Hx Orthopedic Surgery: Yes (Right shoulder 08/13/17) - ANESTHESIA Hx Anesthesia: Yes Hx Anesthesia Reactions: No Hx Malignant Hyperthermia: No Meds Allergies/Adverse Reactions: Allergies Allergy/AdvReac Type Severity Reaction Status Date / Time codeine Allergy NAUSEA Verified 08/31/17 02:06 naproxen [From Naprosyn] Allergy RASH Verified 08/31/17 02:06 Physical Exam - Constitutional Appears: Well, Non-toxic, No Acute Distress Additional comments: well groomed - Head Exam Head Exam: ATRAUMATIC, NORMAL INSPECTION, NORMOCEPHALIC - Eye Exam Eye Exam: EOMI, Normal appearance, PERRL - ENT Exam ENT Exam: Mucous Membranes Moist - Neck Exam Neck exam: Positive for: Normal Inspection - Respiratory Exam Respiratory Exam: Clear to Auscultation Bilateral, NORMAL BREATHING PATTERN. absent: Accessory Muscle Use, Decreased Breath Sounds, Prolonged Expiratory Phase, Rales, Rhonchi, Wheezes, Respiratory Distress - Cardiovascular Exam Cardiovascular Exam: Diastolic murmur, REGULAR RHYTHM, +S1, +S2. absent: Bradycardia, Tachycardia, Systolic Murmur Additional comments: chest: examined under left breast: no skin lesions/erythema/tenderness to palpation - GI/Abdominal Exam GI & Abdominal Exam: Distended, Normal Bowel Sounds, Soft. absent: Guarding, Tenderness - Extremities Exam Extremities exam: Positive for: normal inspection. Negative for: pedal edema, tenderness - Back Exam Back exam: NORMAL INSPECTION - Neurological Exam Neurological exam: Alert, CN II-XII Intact, Oriented x3 - Psychiatric Exam Psychiatric exam: Normal Affect, Normal Mood - Skin Skin Exam: Dry, Intact, Normal Color, Warm Results - Vital Signs Recent Vital Signs: Last Vital Signs Temp 97.9 F 10/12/17 19:52 Pulse 79 10/12/17 19:52 Resp 16 10/12/17 19:52 BP 136/73 10/12/17 19:52 Pulse Ox 98 10/12/17 19:52 - Labs Result Diagrams: 10/12/17 17:48 10/12/17 17:48 Labs: Laboratory Results - last 24 hr 10/12/17 10/12/17 10/12/17 17:48 17:48 17:48 WBC 5.7 RBC 3.91 Hgb 10.7 L Hct 33.1 L MCV 84.9 D MCH 27.4 MCHC 32.3 L RDW 15.6 H Plt Count 216 MPV 8.6 Neut % (Auto) 67.2 Lymph % (Auto) 21.2 Walsh % (Auto) 10.1 H Eos % (Auto) 1.2 Baso % (Auto) 0.3 Neut # 3.9 Lymph # 1.2 Walsh # 0.6 Eos # 0.1 Baso # 0.0 PT 13.2 H INR 1.2 APTT 28.2 Sodium 138 Potassium 4.9 Chloride 107 Carbon Dioxide 24 Anion Gap 12 BUN 16 Creatinine 0.7 Est GFR ( Amer) > 60 Est GFR (Non-Af Amer) > 60 Random Glucose 93 Calcium 9.0 Total Bilirubin 0.8 AST 36 ALT 28 Alkaline Phosphatase 72 Troponin I 0.0200 Total Protein 7.3 Albumin 4.0 Globulin 3.3 Albumin/Globulin Ratio 1.2 Assessment & Plan (1) Chest pain Assessment and Plan: 77 year old female presented with complaints of left sided chest pain admitted for rule out ACS. She had sharp pain below left breast that lasted for a few seconds and radiated to the back. Resolved on its own without medications. No chest pressure, dyspnea , nausea/vomiting or abdominal discomfort, pain did not radiate to neck or arm. No dizziness. Patient has hx of HTN, obssity and anxiety. Admitted to telemetry for rule out ACS, first troponin negative, ekg nsr, pacs She has been taking advil for right shoulder pain, possibly contributing to discomfort although exam was benign No rash seen on exam, shingles unlikely Patient is asymptomatic, will repeat troponin x 1 Status: Acute (2) DVT prophylaxis Assessment and Plan: scds Status: Acute (3) Hypertension Assessment and Plan: resume losartan and statin well controlled followed by Dr. Anna as outpatient Status: Chronic (4) Anemia Assessment and Plan: appears chronic, ongoing since February. normocytic anemia, has been stable and can be worked up as outpatient. Status: Chronic
[2017-10-12 22:09] VITALS: RESP 18
[2017-10-13 08:27] VITALS: TEMP 97.8
[2017-10-13] MEDS ORDERED: SIMVASTATIN 5 MG PO SCH (09:00)
--- NOTE | 2017-10-13 10:38 | CARD ---
APPROVED REPORT EKG Measurement Heart [id number] <Conclusion> Sinus rhythm with frequent premature ventricular complexes Left axis deviation Abnormal ECG
--- NOTE | 2017-10-13 11:37 | CP.PCM.DIS ---
Provider - Provider Date of Admission: 10/12/17 19:13 Attending physician: Lyndon Shankar MD Time Spent in preparation of Discharge (in minutes): 30 Hospital Course - Lab Results Lab Results: Most Recent Lab Values WBC 5.7 K/uL (4.8-10.8) 10/12/17 17:48 RBC 3.91 Mil/uL (3.80-5.20) 10/12/17 17:48 Hgb 10.7 g/dL (12.0-16.0) L 10/12/17 17:48 Hct 33.1 % (34.0-47.0) L 10/12/17 17:48 MCV 84.9 fl (81.0-99.0) D 10/12/17 17:48 MCH 27.4 pg (27.0-31.0) 10/12/17 17:48 MCHC 32.3 g/dL (33.0-37.0) L 10/12/17 17:48 RDW 15.6 % (11.5-14.5) H 10/12/17 17:48 Plt Count 216 K/uL (130-400) 10/12/17 17:48 MPV 8.6 fl (7.2-11.7) 10/12/17 17:48 Neut % (Auto) 67.2 % (50.0-75.0) 10/12/17 17:48 Lymph % (Auto) 21.2 % (20.0-40.0) 10/12/17 17:48 Cuming % (Auto) 10.1 % (0.0-10.0) H 10/12/17 17:48 Eos % (Auto) 1.2 % (0.0-4.0) 10/12/17 17:48 Baso % (Auto) 0.3 % (0.0-2.0) 10/12/17 17:48 Neut # 3.9 K/uL (1.8-7.0) 10/12/17 17:48 Lymph # 1.2 K/uL (1.0-4.3) 10/12/17 17:48 Cuming # 0.6 K/uL (0.0-0.8) 10/12/17 17:48 Eos # 0.1 K/uL (0.0-0.7) 10/12/17 17:48 Baso # 0.0 K/uL (0.0-0.2) 10/12/17 17:48 PT 13.2 Seconds (9.8-13.1) H 10/12/17 17:48 INR 1.2 (0.9-1.2) 10/12/17 17:48 APTT 28.2 Seconds (25.6-37.1) 10/12/17 17:48 Sodium 138 mmol/l (132-148) 10/12/17 17:48 Potassium 4.9 MMOL/L (3.6-5.0) 10/12/17 17:48 Chloride 107 mmol/L (98-107) 10/12/17 17:48 Carbon Dioxide 24 mmol/L (22-30) 10/12/17 17:48 Anion Gap 12 (10-20) 10/12/17 17:48 BUN 16 mg/dl (7-17) 10/12/17 17:48 Creatinine 0.7 mg/dl (0.7-1.2) 10/12/17 17:48 Est GFR ( Amer) > 60 10/12/17 17:48 Est GFR (Non-Af Amer) > 60 10/12/17 17:48 Random Glucose 93 mg/dL (65-105) 10/12/17 17:48 Calcium 9.0 mg/dL (8.4-10.2) 10/12/17 17:48 Total Bilirubin 0.8 mg/dl (0.2-1.3) 10/12/17 17:48 AST 36 U/L (14-36) 10/12/17 17:48 ALT 28 U/L (9-52) 10/12/17 17:48 Alkaline Phosphatase 72 U/L (38-126) 10/12/17 17:48 Troponin I < 0.0120 ng/mL (0.00-0.120) 10/13/17 02:55 Total Protein 7.3 G/DL (6.3-8.2) 10/12/17 17:48 Albumin 4.0 g/dL (3.5-5.0) 10/12/17 17:48 Globulin 3.3 gm/dL (2.2-3.9) 10/12/17 17:48 Albumin/Globulin Ratio 1.2 (1.0-2.1) 10/12/17 17:48 - Hospital Course Hospital Course: Admitted due to chest pain. ACS ruled out with normal ECG and troponins x 2 negative. Chest pain resolved, likely due to anxiety. Stable to DC home. Follow up with Dr. Shankar in 1 week. Continue with home medications, no new presciptions given at this time. Discharge Exam - Head Exam Head Exam: ATRAUMATIC, NORMAL INSPECTION, NORMOCEPHALIC - Eye Exam Eye Exam: EOMI Pupil Exam: PERRL - ENT Exam ENT Exam: Mucous Membranes Moist - Respiratory Exam Respiratory Exam: Clear to PA & Lateral - Cardiovascular Exam Cardiovascular Exam: +S1, +S2 - GI/Abdominal Exam GI & Abdominal Exam: Normal Bowel Sounds, Soft. absent: Tenderness - Extremities Exam Extremities exam: normal inspection - Back Exam Back exam: absent: CVA tenderness (L), CVA tenderness (R) - Neurological Exam Neurological exam: Alert, Oriented x3 - Psychiatric Exam Psychiatric exam: Normal Affect, Normal Mood - Skin Skin Exam: Dry, Normal Color, Warm Discharge Plan - Follow Up Plan Condition: GOOD Disposition: HOME/ ROUTINE Instructions: Dehydration (DC)
[2017-10-13 12:59] VITALS: BP 104/59; PULSE 67; O2SAT 98
--- NOTE | 2017-10-14 10:09 | CARD ---
APPROVED REPORT EKG Measurement Heart [id number] <Conclusion> Sinus rhythm with frequent premature ventricular complexes Left axis deviation Abnormal ECG
== END 2017-10-13 13:35 | disposition home or self-care (01) ==
LOC: H.ER 16:33 → H.ERHOLD 19:13 → H.TEL 21:46
PROVIDERS: ADMIT Family Medicine; ATTEND Family Medicine
DX: F41.9 Anxiety disorder, unspecified (principal); D64.9 Anemia, unspecified; E78.00 Pure hypercholesterolemia, unspecified; E78.5 Hyperlipidemia, unspecified; M25.512 Pain in left shoulder; G89.29 Other chronic pain; I10 Essential (primary) hypertension; K64.9 Unspecified hemorrhoids; Z79.899 Other long term (current) drug therapy; Z87.01 Personal history of pneumonia (recurrent); Z87.440 Personal history of urinary (tract) infections; Z87.442 Personal history of urinary calculi; E66.9 Obesity, unspecified; H26.9 Unspecified cataract; M19.90 Unspecified osteoarthritis, unspecified site
CPT/HCPCS: 36415; 71010; 80053; 84484; 85025; 85610; 85730; 93005; 99285; G0378

== ENCOUNTER 2017-11-16 17:17 | Emergency (ER) | payer MEDICARE, OTHER ==
[2017-11-16 17:18] VITALS: BMI 39.6
[2017-11-16 18:10] VITALS: BP 145/52; PULSE 114; RESP 18; TEMP 98; O2SAT 99
[2017-11-16] MEDS ORDERED: DiphenhydrAMINE 50 mg/ml Inj IM STA (18:17)
[2017-11-16] MEDS ORDERED: Famotidine 40 MG/5 ML PO STA (18:17)
--- NOTE | 2017-11-16 18:23 | ED PDOC ---
HPI: General Adult Time Seen by Provider: 11/16/17 18:12 Chief Complaint (Nursing): Abnormal Skin Integrity Chief Complaint (Provider): Rash History Per: Patient History/Exam Limitations: no limitations Onset/Duration Of Symptoms: Hrs Current Symptoms Are (Timing): Still Present Additional Complaint(s): 77 year old female presents to the emergency department after she developed a rash to the body after taking a Macrobid (an antibiotic she never took before) for her urinary tract infection (UTI). Reports her PMD prescribed her the antibiotics. States she took Benadryl prior to arrival after she developed the pruritic rash over entire body. Patients rash began to improve while waiting in the emergency department although it is still present. Denies history of allergic reaction, chest pain, shortness of breath, throat swelling, or fever. PMD: Dr. Lyndon Porter MD Past Medical History Reviewed: Historical Data, Nursing Documentation, Vital Signs Vital Signs: Last Vital Signs Temp 98 F 11/16/17 18:08 Pulse 114 H 11/16/17 18:08 Resp 18 11/16/17 18:08 BP 145/52 L 11/16/17 18:08 Pulse Ox 99 11/16/17 19:12 - Medical History PMH: Anemia, Anxiety, Arthritis, Bronchitis, HTN, Hypercholesterolemia, Kidney Stones (RIGHT), Pneumonia - Family History Family History: States: Unknown Family Hx - Home Medications Home Medications: Ambulatory Orders Medication Instructions Recorded Acetaminophen [Tylenol 325mg tab] 325 mg PO ASDIR PRN 08/13/17 LORazepam [Ativan] 0.5 mg PO BID PRN 08/13/17 Olmesartan Medoxomil [Benicar] 5 mg PO DAILY 08/13/17 Simvastatin 5 mg PO DAILY 10/12/17 Ciprofloxacin [Cipro] 500 mg PO BID #14 tab 11/16/17 predniSONE [Prednisone] 40 mg PO DAILY #8 tab 11/16/17 - Allergies Allergies/Adverse Reactions: Allergies Allergy/AdvReac Type Severity Reaction Status Date / Time codeine Allergy NAUSEA Verified 08/31/17 02:06 naproxen [From Naprosyn] Allergy RASH Verified 08/31/17 02:06 Review of Systems ROS Statement: Except As Marked, All Systems Reviewed And Found Negative (As per HPI, otherwise negative) Constitutional: Negative for: Fever ENT: Negative for: Throat Swelling Cardiovascular: Negative for: Chest Pain Respiratory: Negative for: Shortness of Breath Skin: Positive for: Rash (s/p allergic reaction) Physical Exam - Reviewed Nursing Documentation Reviewed: Yes Vital Signs Reviewed: Yes - Physical Exam Appears: Positive for: No Acute Distress Head Exam: Positive for: NORMAL INSPECTION Skin: Positive for: Warm, Dry, Rash (Diffuse urticarial rash) Cardiovascular/Chest: Positive for: Regular Rate, Rhythm. Negative for: Murmur Respiratory: Positive for: Normal Breath Sounds. Negative for: Accessory Muscle Use, Respiratory Distress Neurologic/Psych: Positive for: Alert, Oriented (x3), Gait (steady). Negative for: Motor/Sensory Deficits, Facial Droop - ECG O2 Sat by Pulse Oximetry: 99 (RA) Pulse Ox Interpretation: Normal Medical Decision Making Medical Decision Making: Time: 1816 Initial impression: Allergic Reaction to Antibiotics in setting of known urinary tract infection (UTI) Initial plan: --Benadryl 50 mg IM --Pepcid 40 mg PO --Prednisone 4 mg PO --Reevaluation Time: 1909 --Patient is medically stable for discharge and given an Rx for Cipro 500 mg and Prednisone 40 mg. Advised to follow up with PMD. Clinical Impression: Pneumonia Scribe Attestation: Documented by Jo Ann Granados, acting as a scribe for Ismael Cook PA-C Provider Scribe Attestation: All medical record entries made by the Scribe were at my direction and personally dictated by me. I have reviewed the chart and agree that the record accurately reflects my personal performance of the history, physical exam, medical decision making, and the department course for this patient. I have also personally directed, reviewed, and agree with the discharge instructions and disposition. Disposition - Clinical Impression Clinical Impression: Allergic reaction - Patient ED Disposition Is Patient to be Admitted: No - Disposition Disposition: Routine/Home Disposition Time: 19:10 Condition: STABLE Prescriptions: Ciprofloxacin [Cipro] 500 mg PO BID #14 tab predniSONE [Prednisone] 40 mg PO DAILY #8 tab Instructions: Community Acquired Pneumonia (ED) Forms: [employer] (Arabic)
== END 2017-11-16 19:29 | disposition home or self-care (01) ==
LOC: H.ER 17:17
DX: T78.40XA Allergy, unspecified, initial encounter (principal)
CPT/HCPCS: 96372; 99282; J1200

== ENCOUNTER 2018-01-28 08:10 | Day surgery (SDC) | payer MEDICARE, OTHER ==
[2018-01-24 10:21] VITALS: BMI 37.3
[2018-01-28] MEDS ORDERED: Rocuronium 10 mg/ml (5 ml) ONE (08:32)
[2018-01-28] MEDS ORDERED: Propofol 10 mg/ml Inj (20 ML) ONE ×2 (08:32→10:49)
[2018-01-28] MEDS ORDERED: Midazolam 2 MG/2 ML VIAL ONE (08:32)
[2018-01-28] MEDS ORDERED: Succinylcholine 200 mg/10 ml Inj IV ONE (08:32)
[2018-01-28] MEDS ORDERED: Etomidate 20 mg/10ml Inj IV ONE (08:33)
[2018-01-28] MEDS ORDERED: Lidocaine 4% (Laryng-O-Jet) Kit MM ONE (08:33)
[2018-01-28] MEDS ORDERED: Lidocaine 2% Inj (20ml) ONE (08:47)
[2018-01-28] MEDS ORDERED: Bupivacaine HCl 0.5% PF (30 ml) Inj ONE (08:47)
[2018-01-28] MEDS ORDERED: EPINEPHrine 1 mg/ml (1:1000) Inj ONE ×2 (09:06→09:07)
[2018-01-28] MEDS ORDERED: MethylPREDNISolone Depo 40 mg/ml Inj ONE (09:06)
[2018-01-28] MEDS ORDERED: Bupivacaine 0.5% Inj(30mL) ONE (09:07)
[2018-01-28] MEDS ORDERED: Lidocaine Hydrochloride 1% 20 ML ONE (09:07)
[2018-01-28] MEDS ORDERED: Lactated Ringer's 1,000 ML IV ONE (09:38)
[2018-01-28] MEDS ORDERED: EPINEPHrine 1 mg/ml (1:1000) Inj IV ONE (10:23)
[2018-01-28] MEDS ORDERED: ePHEDrine 50 mg/ml Inj ONE (10:25)
[2018-01-28] MEDS ORDERED: Sevoflurane - Inhalation Anesthetic Liq (250 ml) ONE (10:54)
[2018-01-28] MEDS ORDERED: Neostigmine 1:1000 (1 mg/ml) Inj ONE (11:26)
--- NOTE | 2018-01-28 11:49 | PCM.SURG1 ---
Surgeon's Initial Post Op Note - Surgeon's Notes Surgeon: Jane Mack MD Yard Manager: Mango Layne PA-C Type of Anesthesia: General Endo, Other (Interscalene block) Pre-Operative Diagnosis: Left shoulder rotator cuff tear Operative Findings: see op report Post-Operative Diagnosis: same as pre-op dx Operation Performed: Left shoulder arthroscopy, double row rotator cuff repair, subacromial decompression, synovectomy Specimen/Specimens Removed: none Estimated Blood Loss: EBL {In ML}: 10 Date of Surgery/Procedure: 01/28/18 Time of Surgery/Procedure: 10:00
[2018-01-28] MEDS ORDERED: Dexamethasone 4 mg/1 ml IVP PRN (11:51)
[2018-01-28] MEDS ORDERED: Oxycodone/Acetaminophen 5/325 mg Tab PO PRN (11:51)
--- NOTE | 2018-01-28 11:51 | PCM.ANESB1 ---
Interscalene Block - Brachial Plexus Date of Procedure: 01/28/18 Anesthesiologist: Mauricio Pre-Procedure Diagnosis: Left rotator cuff tear Post-Procedure Diagnosis: Same Procedure Performed: Interscalene Block of Brachial Plexus Left - Procedure Interscalene Block of Brachial Plexus: This procedure was explained to the patient that it is for post-operative pain management. Consent was obtained after a thorough discussion with the patient regarding the benefits and possible complications of local anesthetic block of the Brachial Plexus at the Interscalene area. The patient was brought to the Operating Room and standard monitors were applied. Time out was held with the circulating nurse to confirm the correct surgery and appropriate block. After applying Oxygen by nasal cannula and administering IV Sedation, the patient's head was gently rotated away from the ___left___operative shoulder and the anterior scalene groove was carefully palpated. The ultrasound transducer was then applied to the skin in the transverse plane and the brachial plexus was visualized lateral to the carotid artery and in between the anterior and middle scalene muscles. After identification,the anterior lateral portion of the neck was prepped with Betadine solution three times and Lidocaine 1% was injected subcutaneously for topical analgesia. At this point, a # 22 gauge Stimuplex 2 inches insulated needle was inserted into the interscalene groove and directed in a caudal and midline direction. The needle was inserted lateral to the ultrasound transducer in-plane towards the brachial plexus in a [id number] direction. Needle advancement was performed carefully under direct ultrasound visualization. Nerve stimulator was used and twitched of the affected extremity including the hand brachialis muscles, biceps and the deltoid was obtained at a current of __0.4___MA. After repeated negative aspiration,___20__cc of__.5%___,___Bupivacaine were injected. Under ultrasound guidance the local anesthetics were observed surrounding the roots of the brachial plexus. The needle was removed intact and sterile dressing was applied. The patient had stable vital signs, was conscious and in no apparent distress. The patient tolerated the interscalene block of the bracheal plexus well with stable vital signs and was prepared for subsequent surgery.
[2018-01-28 12:55] VITALS: RESP 20
--- NOTE | 2018-01-28 14:44 | OP ---
PROCEDURE DATE: 01/28/2018 ATTENDING PHYSICIAN: Jane Mack MD SENIOR OPERATOR: Mango Huang PA-C PREOPERATIVE DIAGNOSES: 1. Left shoulder rotator cuff tear. 2. Synovitis. 3. Labral tear. POSTOPERATIVE DIAGNOSES: 1. Left shoulder synovitis. 2. Full thickness supraspinatus tear. 3. Type 4 SLAP tear. 4. Anterior capsular adhesions. 5. Impingement. 6. Bursitis. PROCEDURES: 1. Left shoulder arthroscopy, double-row rotator cuff repair. 2. Subacromial decompression with acromioplasty. 3. Anterior capsular lysis of adhesions. 4. Synovectomy. 5. Biceps tenotomy. ESTIMATED BLOOD LOSS: 15 mL. SPECIMENS: None. COMPLICATIONS: None. CLOSURE: Primary. FLUIDS: See anesthesia sheet. ANTIBIOTICS: See anesthesia sheet. INDICATIONS: After failing a course of nonoperative therapy, the patient elected to undergo the above procedures. In the office the risks and possible complications of the shoulder arthroscopy were discussed in detail with the patient. These risks include, but are not limited to, continued pain, lack of motion, infection, vascular injury, and nerve injury including axillary nerve dysfunction, reflex sympathetic dystrophy, compartment syndrome, limb loss, and . The patient expressed an understanding of the risks and possible benefits of the procedure, and was also made aware of the alternatives to surgery. An informed consent was obtained, and was checked immediately preop. Procedure 1: The patient was correctly identified in the holding area and the left shoulder was marked with the surgeon's initials. The patient was transported to the operating room and placed in the supine position and general anesthesia and regional interscalene block was used, exam under anesthesia. A preoperative orthopedic examination revealed a passive range of motion of forward flexion to 160 degrees of forward elevation, external rotation of 50 degrees of external rotation, and abduction of 140 degrees of abduction. Stability examination revealed no instability. Procedure 2: The patient was then placed in a beach chair position utilizing the beach chair positioning device. The patient's head was stabilized and the indicated upper extremity was prepped and draped in the standard surgical fashion. The anatomic structures were outlined with a skin marker, and 1% lidocaine with epinephrine was injected into the posterior, anterior, and lateral portal areas. A #21-gauge spinal needle was placed in the glenohumeral joint from the posterior portal and 10 mL of sterile saline was injected into the glenohumeral joint. Return of fluid indicated correct needle placement into the joint. The needle was then withdrawn and a #11 blade was used to make a 1-cm incision at the posterior portal site. Next, the arthroscopic blunt trocar was inserted into the glenohumeral joint. A #21-gauge spinal needle was placed through the anterior rotator interval, and the anterior portal was made with a #11 blade after the spinal needle was withdrawn. A 7-mm cannula was then inserted after the skin incision was made and the arthroscopic probe was then used to examine the internal structures of the glenohumeral joint. With the shoulder in abducted and externally rotated position, the articular surface of the rotator cuff was visualized. The arthroscope and probe were then switched from posterior to anterior. The posterior labrum, posterior capsule, and biceps anchor reflection was then inspected with the arthroscope in the anterior portal position. Examination of the glenohumeral joint revealed: 1. Synovitis. 2. Full thickness supraspinatus tear. 3. Type 4 SLAP tear. 4. Anterior capsular adhesions. The radiofrequency device was introduced through the anterior portal and a radiofrequency anterior capsular rotator interval lysis of adhesions was performed. The anterior capsule was released to optimize range of motion. The radiofrequency device was used to provide hemostasis during this procedure. After the lysis of adhesions, passive range of motion measured forward flexion 280 degrees of forward elevation, external rotation of 70 degrees of external rotation, and 160 degrees of abduction. Upon careful arthroscopic evaluation of biceps tendon and its anchor site at the labrum, it was noted to be highly frayed and tears not amenable to repair. Due to tissue quality and the patient's age, decision was made to proceed with biceps tenotomy. Using arthroscopic scissors, biceps tenotomy was successfully performed. The loose edges of labrum were debrided using radiofrequency probe and arthroscopic shaver. Excessive glenohumeral synovitis was cleared with a 4.0 mm full radius shaver. The hypertrophic, erythematous synovium was resected. Hemostasis was maintained with the radiofrequency device. Examination of the subacromial space revealed: 1. Bursitis. 2. Decompression. Visualization of the subacromial space was difficult due to excessive bursitis. A bursectomy was performed using a combination of radiofrequency device as well as a 4.0-mm full radius motorized shaver. The soft tissue on the undersurface of the acromion was debrided utilizing the 4.0-mm full radius shaver and the radiofrequency device was used for hemostasis. At this point, the coracoacromial ligament was released with the radiofrequency device and the acromial branch of the thoracoacromial artery was coagulated with the same instrument. Subacromial decompression was performed with a 4.0-mm conical ketan using both the medial portal and the "cutting-block" precision acromioplasty technique from the posterior portal. The undersurface of the acromion was resected to a flat, smooth surface to allow unrestricted excursion of the rotator cuff. After adequate subacromial decompression, attention was then turned to the rotator cuff tear, which was easily visualized after adequate bursectomy had been performed. An auxiliary lateral portal was placed 2 cm posterior to the original lateral portal, after a correct "-man's angle" was determined using a transdeltoid 21 gauge spinal needle. Arthroscopic soft tissue releases were performed using an elevator at the coracohumeral ligament insertion and superior glenoid to free up the rotator cuff to provide adequate excursion to support a repair to the greater tuberosity. Next, the greater tuberosity was gently debrided with a combination of the 4.0 mm straight shaver and radiofrequency device, and the bone was denuded to a bleeding surface using the 4.0-mm ketan. The lateral margin of the rotator cuff tear was debrided to a smooth and stable tendon surface using the 4.0-mm shaver. Two 4.5-mm Arthrex corkscrew suture anchors were placed with the proper "-man's angle" into the greater tuberosity, and a mattress suture from each anchor was passed through supraspinatus 10 mm medial to the torn edge. These anchors formed the medial row of the double row repair. The arm was abducted to 70 degrees, and the leading edge of the cuff was drawn to its proper insertion on the greater tuberosity. The #2 FiberWire mattress sutures were tied with standard arthroscopic knot tying techniques - Pop knots and half hitches using a knot pusher. The remaining sutures were secured to the tuberosity with two 4.5-mm PushLock absorbable anchors, which were placed with standard technique into the lateral aspect of the greater tuberosity approximately 1 cm lateral to the medial row anchors. One suture strand from each knot was crossed to the diagonal PushLock anchor along with the suture strand from the corresponding anchor directly medial. This linking of the medial and lateral row formed a "suture bridge" rotator cuff repair. The ends of the remaining sutures were then cut. The shoulder was put through a passive ROM, and the rotator cuff repair was noted to be stable through a ROM of 130/50. No prominence of the suture knots or of rotator cuff tissue was noted to impinge during abduction and internal rotation. The subacromial space was then irrigated with sterile saline, and closure was instituted with sutures. A dressing was placed consisting of Xeroform, 4x4's, ABD pads, and tape. The patient was placed in a sling with an ABD pad in the axilla. The patient was then placed in a supine position and extubated without incident. The patient was transferred to the recovery room in stable condition, having tolerated the procedure well. Postoperatively, the patient will be maintained in an abduction sling, also provided with my rehab protocol, defining the restriction and sling use for 6-8 weeks. Followup in 6 weeks. During this procedure, I was assisted by Mango Huang PA-C, who assisted in positioning the patient on the operating room table as well as transferring the patient from the operating room table to the recovery room stretcher. In addition, Mango Huang PA-C, assisted me during the actual operative procedure by positioning the patient's extremity to allow for easier arthroscopic access to all areas of the joint. The presence of Mango Huang PA-C, as my operative personalized living assistant, was medically necessary to ensure the utmost safety of the patient in the pre, intra-, and postoperative periods. Jane Mack MD
[2018-01-28 16:49] VITALS: BP 136/78; PULSE 100; TEMP 98; O2SAT 96
== END 2018-01-28 16:00 | disposition home or self-care (01) ==
LOC: H.OPSURG 08:10
PROVIDERS: ATTEND Orthopaedic Surgery
DX: E78.5 Hyperlipidemia, unspecified (principal); I10 Essential (primary) hypertension; M65.812 Other synovitis and tenosynovitis, left shoulder; M75.102 Unspecified rotator cuff tear or rupture of left shoulder, not specified as traumatic; S43.432A Superior glenoid labrum lesion of left shoulder, initial encounter; X58.XXXA Exposure to other specified factors, initial encounter; M75.02 Adhesive capsulitis of left shoulder; M75.52 Bursitis of left shoulder; M75.42 Impingement syndrome of left shoulder
CPT/HCPCS: 29820; 29825; 29826; 29827; J0171; J0330; J0690; J2001; J2250; J2704; J2710; J2765; J3010; J7120

== ENCOUNTER 2018-05-21 11:24 | Day surgery (SDC) | payer MEDICARE, OTHER ==
[2018-05-21 12:15] VITALS: BMI 40.9
[2018-05-21] MEDS ORDERED: Midazolam 2 MG/2 ML VIAL ONE (13:49)
[2018-05-21] MEDS ORDERED: Lidocaine Hydrochloride 5 ML INJ ONE (13:58)
--- NOTE | 2018-05-21 14:17 | CP.SDSHP ---
Same Day Surgery H & P - History Proposed Procedure: CT guided core biopsy of left lung nodule Pre-Op Diagnosis: left lung nodule - Allergies Allergies: Allergies amlodipine [From Norvasc] Allergy (Verified 01/28/18 09:37) PAIN codeine Allergy (Verified 01/28/18 09:37) NAUSEA ezetimibe [From Vytorin] Allergy (Verified 01/28/18 09:37) PAIN naproxen [From Naprosyn] Allergy (Verified 01/28/18 09:37) RASH nitrofurantoin [From Macrodantin] Allergy (Verified 01/28/18 09:37) HEADACHE sertraline [From Zoloft] Allergy (Verified 01/28/18 09:37) RASH simvastatin [From Vytorin] Allergy (Verified 01/28/18 09:37) PAIN tramadol [From Ultram] Allergy (Verified 01/28/18 09:37) dry mouth desquil Allergy (Uncoded 01/28/18 09:37) RASH - Physical Exam Vital Signs: Vital Signs 05/21/18 05/21/18 05/21/18 12:18 12:25 13:55 Temperature 98.2 F 98.6 F Pulse Rate 96 H 96 H 110 H Respiratory 20 24 Rate Blood Pressure 139/80 141/78 O2 Sat by Pulse 98 100 Oximetry Mental Status: Alert & Oriented x3 Neuro: WNL Heart: WNL Lungs: WNL - Impression Impression: Pt iwth a 15 mm left lower lobe lung nodule. Plan CT guided core biopsy of left lung nodule. Informed consent and risk of pneumothorax requiring chest tube discussed. Pt. Evaluated Today:Candidate for Anesthesia & Procedure: Yes (ASA 3 Malampati 3) - Date & Time Date: 05/21/18 Time: 13:45 Short Stay Discharge - Short Stay Discharge Admitting Diagnosis/Reason for Visit: LLL NODULE Disposition: HOME/ ROUTINE Referrals: Lyndon Porter MD [Primary Care Provider] -
--- NOTE | 2018-05-21 14:19 | PCM.SURG1 ---
Surgeon's Initial Post Op Note - Surgeon's Notes Surgeon: Juno Kent MD Train Starter: NONE Type of Anesthesia: IV Sedation Pre-Operative Diagnosis: left lung nodule Operative Findings: 15 mm peripheral left lower lobe nodule. Post-Operative Diagnosis: left lung nodule Operation Performed: CT guided core biopsy of left lung nodule Specimen/Specimens Removed: 20 gauge core x 2 Estimated Blood Loss: EBL {In ML}: 0 Blood Products Given: N/A Drains Used: No Drains Post-Op Condition: Good Date of Surgery/Procedure: 05/21/18 Time of Surgery/Procedure: 14:10
[2018-05-21] MEDS ORDERED: Lactated Ringer's 1,000 ML IV ONE (14:25)
--- NOTE | 2018-05-21 14:34 | CT ---
PROCEDURE: Date of procedure: 05/21/2018 Procedure: 1. CT-guided lung mass biopsy, CPT [address] Guidance for biopsy, [address] Radiation: 2112.92mGy-cm Medications: The patient was sedated by anesthesiologist along with physiologic monitoring. HISTORY: Left lober lobe lung nodule TECHNIQUE: Following informed consent and procedure time out, the patient was placed prone on the CT table and noncontrast CT scan was performed. Noncontrast CT scan confirmed the presence of a peripheral 1.5 cm left lung nodule. A skin localizer was placed on the patient's LEFT back and a repeat CT scan was performed. The skin was marked, prepped, and draped in the usual sterile fashion. After the skin was anesthetized with lidocaine and the patient sedated by the anesthesiologist, a 20 gauge core needle was advanced percutaneously under direct CT guidance into the mass. Upon confirmation of needle position, Two 20-gauge core specimens were obtained and sent for routine pathology. The needle was removed and a xeroform dressing was applied. A post biopsy CT scan showed no pneumothorax. IMPRESSION: CT guided core biopsy left lower lobe lung nodule.
[2018-05-21] MEDS ORDERED: Lactated Ringer's 1,000 ML IV SCH (14:45)
[2018-05-21 15:27] VITALS: RESP 18
--- NOTE | 2018-05-21 15:43 | RAD ---
Date of service: 05/21/2018 HISTORY: Status post left lung nodule biopsy COMPARISON: Comparison chest dated 04/07/2018 FINDINGS: LUNGS: Study is slightly limited by a mild apical lordotic patient positioning. Study is further limited due to poor inspiration with low lung volumes crowded bronchovascular markings and mild bibasilar atelectasis. PLEURA: No significant pleural effusion identified, no pneumothorax apparent. CARDIOVASCULAR: Heart appears upper limits of normal/borderline enlarged. OSSEOUS STRUCTURES: No significant abnormalities. VISUALIZED UPPER ABDOMEN: Normal. OTHER FINDINGS: None. IMPRESSION: Limited study. Poor inspiration with low lung volumes, crowded bronchovascular markings and mild bibasilar atelectasis.
[2018-05-21 17:06] VITALS: BP 122/61; PULSE 91; TEMP 97.6; O2SAT 97
== END 2018-05-21 17:10 | disposition home or self-care (01) ==
LOC: H.OPSURG 11:24
PROVIDERS: ATTEND Internal Medicine Pulmonary Disease
DX: J98.4 Other disorders of lung (principal); I10 Essential (primary) hypertension; Z88.1 Allergy status to other antibiotic agents
CPT/HCPCS: 32405; 71045; 77012; 88305; J2250; J3010; J7120